=== PATIENT | female | born 1945 | race Caucasian/White ===

== ENCOUNTER → 2017-11-09 14:18 | Outpatient (CLI) | payer MEDICARE, OTHER, SELFPAY ==
--- NOTE | 2017-11-09 | OV.WND_ITS ---
Progress Note Details Patient Name: Oleg Saleh Patient Number: [id number] PatientPatientDate: 11/09/2017 Clinician: Shilpi Morgan Clinician Cosigner: Ana Harper Physician / Casing Cleaner: Roberto Khan SUBJECTIVE Chief Complaint This information was obtained from the patient Non healing wound to left leg. Allergies penicillin HPI This information was obtained from the patient 11/09/17. Seen by Dr. hKan. The patient's new to our clinic and presents with a non-healing left lower leg trauma wound that occurred about 6 weeks ago when she hit the medial calf on a chair. I subsequently swelled and became infected at which time she reports taking a course of Bactrim that made her nauseated. She does not report pain at the site, fevers , or feeling unwell but has considerable periwound and lower leg swelling. She also does not have a history of diabetes or PAD. Family History This information was obtained from the patient Cancer - Mother, Heart Disease - Father, Lung Disease - Mother Social History This information was obtained from the patient Alcohol Use - 3/ day, Caffeine Use - occasional, Children - 1, Lives in - Private home, Marital Status, Retired - Teacher Past Medical History This information was obtained from the patient Patient has a medical history of: Hypertension Hyperlipidemia Arthritis Alcohol Abuse Surgical History This information was obtained from the patient Patient has a surgical history of: Bilateral TKA cataract removal Complaints and Symptoms This information was obtained from the patient Patient complains of: General Notes: I have reviewed and concur with the Review of Systems and Past Family Social History documents completed by the clinician, I have reviewed and concur with the Wound Assessment document completed by the clinician Cardiovascular (Central/Peripheral): Lower extremity (leg) swelling Integumentary (Hair/Skin/Nails): Open Sore Prior Wound History: Bleeding, Drainage, Erythema Patient denies complaints or symptoms related to: Cardiovascular (Central): Irregular heart beat Cardiovascular (Central/Peripheral): Intermittent Claudication, Lower extremity (leg) resting pain Constitutional Symptoms (General Health): Chills, Fever Ear/Nose/Mouth/Throat: Hearing Loss / Aid Hematologic/Lymphatic: Bleeding / Clotting Disorders, Bleeding Tendency Musculoskeletal: Assistive Devices Neurological: Loss of Protective Sensation Psychiatric: Memory Loss Respiratory: Shortness of Breath General Notes: Up to date per patient Medications oxycodone 5 mg tablet oral tablet oral every 4-6 hours as needed diazepam 5 mg tablet oral tablet oral ondansetron 4 mg oral soluble film oral film oral once daily pravastatin 20 mg tablet oral tablet oral once daily atenolol 25 mg tablet oral tablet oral once daily doxycycline hyclate 100 mg capsule oral capsule oral twice daily for 7 days for infected hematoma gentamicin 0.1 % topical ointment topical ointment topical every other day for 7 days for infected wound OBJECTIVE Constitutional BP normal; Low grade fever; Alert and in no distress. Well developed. Alert. Clean appearing.. Height/Length: 61 in (154.94 cm), Weight: 185.7 lbs (84.41 kgs), BMI: 35.1, Temperature: 99.2 ?F (37.33 ?C), Pulse: 69 bpm, Respiratory Rate: 16 breaths/min, Blood Pressure: 133/72 mmHg, Pulse Oximetry: 94 %. Ears, Nose, Mouth, and Throat: No clinically significant hearing loss on informal examination. Respiratory: No respiratory distress. Even respirations and without use of accessory muscles.. Cardiovascular: Pedal pulses 2+ on affected limb. 1+ left lower extremity edema. Gastrointestinal (GI): Obese. Nondistended.. Integumentary (Hair, Skin) Mild periwound erythema with warmth; significant firm periwound edema. Refer to appropriate clinician wound documentation for this visit; left lower leg wound extends to deep subcut with visible base covered with wet fibrin and slough; tunneling distally extends approx 7cm with necrotic adipose noted on probing. Wound #1 Left, Medial Leg is a chronic Full Thickness Venous Ulcer and has received a status of Not Healed. Initial wound encounter measurements are 2.3cm length x 2.2cm width x 2.1cm depth, with an area of 5.06 sq cm and a volume of 10.626 cubic cm. No tunneling has been noted. Undermining has been noted at 1:00 and ends at 10:00 with a maximum distance of 6.2cm. There is a large amount of seropurulent drainage noted which has a mild odor. The patient reports a wound pain of level 0/10. The wound margin is irregular. Wound bed has Yes epithelialization, No eschar, Yes slough, Yes bright red, pink, firm granulation. The periwound skin moisture is normal. The periwound skin color is normal. The periwound skin exhibited: Edema, Induration. The temperature of the periwound skin is WNL. Periwound skin presents with s/s of infection. Confirmation Description and Treatment Plan is: Signs and Symptoms Present. Local Pulse is Palpable. Neurological: Cranial nerves grossly intact with symmetric function normal by informal observation.. ASSESSMENT Active Problems ICD-10 (Encounter Diagnosis) S81.802D - Unspecified open wound, left lower leg, subsequent encounter (Encounter Diagnosis) L03.116 - Cellulitis of left lower limb (Encounter Diagnosis) M79.9 - Soft tissue disorder, unspecified PLAN Wound Orders: Wound #1 Left, Medial Leg Anesthetic Topical Xylocaine to wound bed. - In clinic only. Cleanser Cleanse Wound: - Normal Saline and Gauze. May Shower. - Please avoid getting tap water in wound or on dressing. May use cast protector purchased from pharmacy. Topical Treatments Antibiotic/Antimicrobial Ointment/Cream. - Gentamicin ointment. Dressings Pack wound: - Ribbon gauze, buttered with gentamicin ointment Primary dressing: - Tielle plus bordered foam Additional Orders: Compression/Edema Control Elevation of leg(s) above the level of the heart when sitting. Avoid prolonged standing in one place. Single Layer Compression Wrap: - Tetra F. On during the day, off at bed time. Follow-Up Appointments Return Appointment: - - We will follow up after your appointment with [facility]. Other information: If you develop fever, chills, increased pain, drainage, redness or swelling please call our office. If after hours, respond to the ER. Should you experience any significant changes in your wound(s) or have any questions regarding your home care instructions please contact the wound center @ [phone]. If after hours, contact your primary care physician or go to the hospital emergency room. Scribing Attestation I attest, as the nurse, that I scribed these orders for the physician. Laboratory: Bacteria identified in Wound by Culture General Notes: Please pick antibiotics and take as prescribed. Follow up with [facility] on Sunday. I've reviewed the clinician's documentation and agree with the evaluation and plan as written. Also, I've started the patient on doxycycline for cellulitis associated with what's likely an infected hematoma beneath the left lower leg wound. A deep culture's been taken and we'll adjust antibiotics accordingly. I've also referred her to general surgery for consideration of deep debridement after which she'll likely benefit from negative pressure wound therapy. Electronic Signature(s) Signed By: Date: Roberto Khan MD 11/11/2017 14:27:05 Entered By: Roberto Khan on 11/11/2017 14:24:28
== END ==
PROVIDERS: PCP Specialist; Visit Provider Internal Medicine
DX: S81.802A Unspecified open wound, left lower leg, initial encounter (principal); L03.116 Cellulitis of left lower limb; M79.9 Soft tissue disorder, unspecified
CPT/HCPCS: 87070; 87075; 87077; 87186; 87205; 99214

== ENCOUNTER 2017-11-14 08:28 | Day surgery (SDC) | payer MEDICARE, OTHER, SELFPAY ==
[2017-11-13 09:36] VITALS: BMI 33.4
[2017-11-14] MEDS: LACTATED RINGERS 1,000 ML 42 ML IV ×2 (09:30→09:44)
[2017-11-14 09:45] VITALS: BMI 36.4
[2017-11-14 10:03] VITALS: BP 140/83; PULSE 63; RESP 16; TEMP 36.3; O2SAT 94
[2017-11-14] MEDS: levoFLOXacin 500 MG/100 ML PIGGYBACK 100 MG IV (10:03)
--- NOTE | 2017-11-14 10:14 | SUR.OPER ---
Supine on padded OR bed, head on pillow, arms secured on padded arm boards at <90 degrees abduction, legs uncrossed, safety belt at thigh, tape over blanket over lower legs.
[2017-11-14] MEDS: LIDOCAINE 1% W/EPI INJ 20 ML INJ (10:41)
[2017-11-14] MEDS: BUPIVACAINE 0.5% (PF) 30 ML VIAL INJ (10:42)
--- NOTE | 2017-11-14 10:57 | PM.OP.1 ---
Operative Date/Time/Diagnoses - Date of procedure: 11/14/17 Time of procedure: 10:58 Post-op diagnosis: same Procedure & Clinicians Procedure: Incisional debridement of nonhealing wound of the left lower extremity Same procedure as scheduled: Yes Indications: Open and nonhealing wound of the left lower extremity after trauma Surgeon: Daisy Espinoza Click Yes if Unassisted: Yes Anesthesia Type: General (Kotlarczyk) Operative Notes Findings: 12 x 10 cm cavity containing fibrinous exudate and necrotic fatty tissue Specimen(s): none sent Implants & Drains: Wound VAC in the open wound of the left calf Estimated Blood Loss (mL): 20 Procedure in detail: After obtaining informed consent, the patient is brought to the operating room and placed in supine position on the operating table. Following successful induction of general endotracheal anesthesia, appropriate padding of all bony prominences, and placed on appropriate monitors, the left calf was prepped and draped in the standard surgical fashion. A time-out was held per SCOAP protocol. Following infiltration with local anesthetic to create a field block, an incision was created directly over the palpable and visible cavity. The incision was extended inferiorly and superiorly until the entire cavity was opened and accessible. The cavity was cultured for aerobic and anaerobic bacteria. A 10 blade scalpel was then used to scrape all exudate and necrotic tissue from all cavity surfaces. The wound was then copiously irrigated with Betadine containing saline. Wound was checked for hemostasis multiple times until the entire wound had been debrided and irrigated copiously with Betadine. We then placed a wound VAC by trimming the foam to an appropriate size and inserting it within the cavity. The entire skin edge was coated with Mastisol and the and dressings applied on the surface. The wound VAC was hooked to suction and maintained an appropriate level of negative pressure. All sponge, needle, and instrument counts were correct at the conclusion of the case. The patient was allowed to awaken from anesthesia without difficulty and taken to the postanesthesia care unit in good condition. Complications: none Condition: stable Disposition: PACU Plan for aftercare: 1. Discharge to home 2. Follow up with the wound care center as previously scheduled
[2017-11-14 11:05] VITALS: BP 113/63; PULSE 73; RESP 16; TEMP 37.2; O2SAT 99
[2017-11-14 11:10] VITALS: BP 127/69; PULSE 74; RESP 16; O2SAT 98
[2017-11-14 11:15] VITALS: PULSE 153; RESP 17; O2SAT 97
[2017-11-14 11:29] VITALS: BP 142/72; PULSE 64; RESP 17; TEMP 36.9; O2SAT 96
[2017-11-14] MEDS: OXYCODONE IR 5 MG TABLET PO (11:43)
--- NOTE | 2017-11-14 12:10 | SUR.PHASEII ---
pt has [facility] wound vac to continuous suction. appointment for clinic is 11/16/17 at 1315 and pt is aware that wound care visits will be twice a week in the future. pt has instructuion book for wound vac and also has phone number for clinic if any questions arrise
[2017-11-14 13:00] VITALS: BP 140/68; PULSE 64; RESP 16; TEMP 36.8; O2SAT 93
--- NOTE | 2017-11-14 15:14 | PM.PREOP ---
Pre-operative Note Interval Note Pre-op Check: Yes History & Physical Reviewed by Physician Changes: No
== END 2017-11-14 13:05 | disposition home or self-care (01) ==
PROVIDERS: PCP Specialist; Visit Provider Surgery
PROC: (CPT 11043; principal; 2017-11-14 12:15)
DX: S81.802A Unspecified open wound, left lower leg, initial encounter (principal); W22.03XA Walked into furniture, initial encounter
CPT/HCPCS: 11043; 11046; 87070; 87075; 87077; 87186; 87205; J1100; J1956; J2405; J2704; J3010

== ENCOUNTER → 2017-11-16 15:41 | Outpatient (CLI) | payer MEDICARE, OTHER, SELFPAY ==
--- NOTE | 2017-11-16 | OV.WND_ITS ---
Progress Note Details Patient Name: Oleg Saleh Patient Number: [id number] PatientPatientDate: 11/16/2017 Clinician: Ivory Ramirez Clinician Cosigner: Wandy Daugherty Physician / Product Safety Compliance Leader: Keyshawn Bella SUBJECTIVE Chief Complaint This information was obtained from the patient Non healing wound to left leg. Allergies penicillin HPI This information was obtained from the patient 11/16/17. Seen by Afshin Bella PA-C. The patient reports decreased drainage from her left lower leg wound since starting cefdinir, which she continues the course of. She also tells us today that she will be travelling to [facility] in 3 weeks. 11/09/17. Seen by Dr. Khan. The patient's new to our clinic and presents with a non-healing left lower leg trauma wound that occurred about 6 weeks ago when she hit the medial calf on a chair. I subsequently swelled and became infected at which time she reports taking a course of Bactrim that made her nauseated. She does not report pain at the site, fevers , or feeling unwell but has considerable periwound and lower leg swelling. She also does not have a history of diabetes or PAD. Family History This information was obtained from the patient Cancer - Mother, Heart Disease - Father, Lung Disease - Mother Social History This information was obtained from the patient Alcohol Use - 3/ day, Caffeine Use - occasional, Children - 1, Lives in - Private home, Marital Status, Retired - Teacher Past Medical History This information was obtained from the patient Patient has a medical history of: Hypertension Hyperlipidemia Arthritis Alcohol Abuse Complaints and Symptoms This information was obtained from the patient Patient complains of: General Notes: I have reviewed and concur with the Review of Systems and Past Family Social History documents completed by the clinician, I have reviewed and concur with the Wound Assessment document completed by the clinician Cardiovascular (Central/Peripheral): Lower extremity (leg) swelling Integumentary (Hair/Skin/Nails): Open Sore Prior Wound History: Bleeding, Drainage, Erythema Patient denies complaints or symptoms related to: Cardiovascular (Central): Irregular heart beat Cardiovascular (Central/Peripheral): Intermittent Claudication, Lower extremity (leg) resting pain Constitutional Symptoms (General Health): Chills, Fever Ear/Nose/Mouth/Throat: Hearing Loss / Aid Hematologic/Lymphatic: Bleeding / Clotting Disorders, Bleeding Tendency Musculoskeletal: Assistive Devices Neurological: Loss of Protective Sensation Psychiatric: Memory Loss Respiratory: Shortness of Breath OBJECTIVE Constitutional Vital signs reviewed and noted. Well developed, lucid, and in no acute distress. . Height/Length: 61 in (154.94 cm), Weight: 183.4 lbs (83.36 kgs), BMI: 34.6, Temperature: 99.2 ?F (37.33 ?C), Pulse: 62 bpm, Respiratory Rate: 16 breaths/min, Blood Pressure: 117/72 mmHg, Pulse Oximetry: 96 %. Eyes: Conjunctiva clear and without icterus. Pupils are equal and round; EOM's intact. Ears, Nose, Mouth, and Throat: Grossly intact. Respiratory: No respiratory distress. Even respirations and without use of accessory muscles.. Integumentary (Hair, Skin) Refer to appropriate clinician wound documentation for this visit; ulcer extends to subcutaneous fat layer. . Wound #1 Left, Medial Leg is a chronic Full Thickness Venous Ulcer and has received a status of Not Healed. Subsequent wound encounter measurements are 5.9cm length x 3.3cm width x 2cm depth, with an area of 19.47 sq cm and a volume of 38.94 cubic cm. No tunneling has been noted. Undermining has been noted at 1:00 and ends at 10:00 with a maximum distance of 3cm. There is a large amount of sero-sanguineous drainage noted which has no odor. The patient reports a wound pain of level 0/10. The wound margin is irregular. Wound bed has Yes epithelialization, No eschar, Yes slough, Yes bright red, pink, firm granulation. The periwound skin moisture is normal. The periwound skin color is normal. The periwound skin exhibited: Edema, Induration. The temperature of the periwound skin is WNL. Periwound skin does not exhibit signs or symptoms of infection. Local Pulse is Palpable. General Notes: Undermining measured between 1 o'clock and 4 0'clock 3.0cm Psychiatric: Judgement and insight: Normal affect with normal thought pattern. Alert and oriented 3/3. Memory grossly intact.. Normal affect. Mood appropriate.. ASSESSMENT Active Problems ICD-10 (Encounter Diagnosis) S81.802D - Unspecified open wound, left lower leg, subsequent encounter (Encounter Diagnosis) L03.116 - Cellulitis of left lower limb (Encounter Diagnosis) M79.9 - Soft tissue disorder, unspecified PROCEDURES Wound #1 Wound #1 (Venous Ulcer) is located on the left, medial leg. A skin/subcutaneous tissue level surgical debridement with a total area debrided of 19.47 sq cm was performed by Keyshawn Bella PA. Subcutaneous was removed along with devitalized tissue: slough. The following instrument(s) were used: curette. Pain control was achieved using 4% Lido. A time out was conducted prior to the start of the procedure. A minimal amount of bleeding was controlled with n/a. The procedure was tolerated well with a pain level of 0 throughout and a pain level of 0 following the procedure. Post Debridement Measurements: 5.9cm length x 3.3cm width x 0.3cm depth; with an area of 19.47 sq cm and a volume of 5.841 cubic cm; Additional Information Muscle fascia or bone removed and sent to pathology?: No PLAN Wound Orders: Wound #1 Left, Medial Leg Anesthetic Topical Xylocaine to wound bed. - In clinic only. Cleanser Cleanse Wound: - Normal Saline and Gauze. May Shower. - Please avoid getting tap water in wound or on dressing. May use cast protector purchased from pharmacy. Topical Treatments Antibiotic/Antimicrobial Ointment/Cream. - Gentamicin ointment. Dressings Negative Pressure Wound Therapy - [facility] Additional Orders: Compression/Edema Control Elevation of leg(s) above the level of the heart when sitting. Avoid prolonged standing in one place. Follow-Up Appointments Return Appointment: - - Sunday and Sunday. Other information: If you develop fever, chills, increased pain, drainage, redness or swelling please call our office. If after hours, respond to the ER. Should you experience any significant changes in your wound(s) or have any questions regarding your home care instructions please contact the wound center @ [phone]. If after hours, contact your primary care physician or go to the hospital emergency room. Scribing Attestation I attest, as the nurse, that I scribed these orders for the physician. General Notes: Please finish taking your antibiotics as prescribed. I've reviewed the clinician's documentation and agree with the evaluation and plan as written. In addition the patient's ulcer demonstrates evidence of non-viable devitalized tissue which benefits from sharp debridement. Separate from the need for debridement today to speed healing, the patient's infection was assessed and appears to still be active. The patient was enouraged to continue complying with the ordered antimicrobial regemin for ongoing treatment for this issue. Negative pressure wound therapy was applied today for the purpose of reducing local edema, promoting granulation tissue formation and perfusion, and for the removal of exudate and infectious material. Electronic Signature(s) Signed By: Date: Afshin Bella 11/19/2017 22:08:02 Entered By: Afshin Bella on 11/19/2017 21:20:32
== END ==
PROVIDERS: PCP Specialist; Visit Provider Physician Assistant
DX: S81.802A Unspecified open wound, left lower leg, initial encounter (principal); L03.116 Cellulitis of left lower limb; M79.9 Soft tissue disorder, unspecified
CPT/HCPCS: 11042; 97605

== ENCOUNTER → 2017-11-20 14:35 | Outpatient (CLI) | payer MEDICARE, OTHER, SELFPAY ==
--- NOTE | 2017-11-20 | OV.WND_ITS ---
Progress Note Details Patient Name: Oleg Saleh Patient Number: [id number] PatientPatientDate: 11/20/2017 Clinician: Ivory Ramirez Clinician Cosigner: Wandy Daugherty Physician / Hot Blaster: Roberto Khan SUBJECTIVE Chief Complaint This information was obtained from the patient Non healing wound to left leg. Allergies penicillin HPI This information was obtained from the patient 11/20/17. Seen by Dr. Khan. The patient continues on antibiotics without reporting fevers or adverse side effects for the left lower leg infected hematoma that was recently evacuated by Dr. Espinoza. She's also receiving negative pressure wound therapy without reporting complications. 11/16/17. Seen by Afshin Bella PA-C. The patient reports decreased drainage from her left lower leg wound since starting cefdinir, which she continues the course of. She also tells us today that she will be travelling to [facility] in 3 weeks. 11/09/17. Seen by Dr. Khan. The patient's new to our clinic and presents with a non-healing left lower leg trauma wound that occurred about 6 weeks ago when she hit the medial calf on a chair. I subsequently swelled and became infected at which time she reports taking a course of Bactrim that made her nauseated. She does not report pain at the site, fevers , or feeling unwell but has considerable periwound and lower leg swelling. She also does not have a history of diabetes or PAD. Past Medical History This information was obtained from the patient Patient has a medical history of: Hypertension Hyperlipidemia Arthritis Alcohol Abuse Complaints and Symptoms This information was obtained from the patient Patient complains of: General Notes: I have reviewed and concur with the Review of Systems and Past Family Social History documents completed by the clinician, I have reviewed and concur with the Wound Assessment document completed by the clinician Cardiovascular (Central/Peripheral): Lower extremity (leg) swelling Integumentary (Hair/Skin/Nails): Open Sore Prior Wound History: Bleeding, Drainage, Erythema Patient denies complaints or symptoms related to: Cardiovascular (Central): Irregular heart beat Cardiovascular (Central/Peripheral): Intermittent Claudication, Lower extremity (leg) resting pain Constitutional Symptoms (General Health): Chills, Fever Ear/Nose/Mouth/Throat: Hearing Loss / Aid Hematologic/Lymphatic: Bleeding / Clotting Disorders, Bleeding Tendency Musculoskeletal: Assistive Devices Neurological: Loss of Protective Sensation Psychiatric: Memory Loss Respiratory: Shortness of Breath OBJECTIVE Constitutional Vital signs reviewed and noted. Well developed. Alert. Clean appearing.. Height/ Length: 61 in (154.94 cm), Weight: 183.4 lbs (83.36 kgs), BMI: 34.6, Temperature: 98.6 ?F (37 ?C), Pulse: 58 bpm, Respiratory Rate: 16 breaths/min, Blood Pressure: 129/82 mmHg, Pulse Oximetry: 98 %. Ears, Nose, Mouth, and Throat: No clinically significant hearing loss on informal examination. Respiratory: No respiratory distress. Even respirations and without use of accessory muscles.. Cardiovascular: 1+ left lower extremity edema. Integumentary (Hair, Skin) No periwound erythema, warmth, or significant drainage. No periwound rashes appreciated or noted otherwise.. Refer to appropriate clinician wound documentation for this visit; left lower leg wound extends to subcut with base partially covered with pink granulation, remainder fibrin and slough; periwound swelling much improved and no warmth appreciated. Wound #1 Left, Medial Leg is a chronic Full Thickness Venous Ulcer and has received a status of Not Healed. Subsequent wound encounter measurements are 6cm length x 3.3cm width x 1.1cm depth, with an area of 19.8 sq cm and a volume of 21.78 cubic cm. No tunneling has been noted. No sinus tract has been noted. Undermining has been noted at 1:00 and ends at 10:00 with a maximum distance of 1.5cm. There is a large amount of sero- sanguineous drainage noted which has no odor. The patient reports a wound pain of level 0/ 10. The wound margin is irregular. Wound bed has Yes epithelialization, No eschar, Yes slough , Yes bright red, pink, firm granulation. The periwound skin moisture is normal. The periwound skin color is normal. The periwound skin exhibited: Edema, Induration. The temperature of the periwound skin is WNL. Periwound skin does not exhibit signs or symptoms of infection. Local Pulse is Palpable. Neurological: Cranial nerves grossly intact with symmetric function normal by informal observation.. ASSESSMENT Active Problems ICD-10 (Encounter Diagnosis) S81.802D - Unspecified open wound, left lower leg, subsequent encounter (Encounter Diagnosis) M79.9 - Soft tissue disorder, unspecified (Encounter Diagnosis) L08.9 - Local infection of the skin and subcutaneous tissue, unspecified PROCEDURES Wound #1 Wound #1 (Venous Ulcer) is located on the left, medial leg. A skin/subcutaneous tissue level surgical debridement with a total area debrided of 19.8 sq cm was performed by Roberto Khan MD. Subcutaneous was removed along with devitalized tissue: slough. The following instrument(s) were used: curette. Pain control was achieved using 4% Lido. A time out was conducted prior to the start of the procedure. A minimal amount of bleeding was controlled with n/a. The procedure was tolerated well with a pain level of 0 throughout and a pain level of 0 following the procedure. Post Debridement Measurements: 6cm length x 3.3cm width x 1.2cm depth; with an area of 19.8 sq cm and a volume of 23.76 cubic cm; Additional Information Muscle fascia or bone removed and sent to pathology?: No PLAN Wound Orders: Wound #1 Left, Medial Leg Anesthetic Topical Xylocaine to wound bed. - In clinic only. Cleanser Cleanse Wound: - Normal Saline and Gauze. May Shower. - Please avoid getting tap water in wound or on dressing. May use cast protector purchased from pharmacy. Topical Treatments Antibiotic/Antimicrobial Ointment/Cream. - Gentamicin ointment. Dressings Negative Pressure Wound Therapy - KCI Additional Orders: Compression/Edema Control Elevation of leg(s) above the level of the heart when sitting. Avoid prolonged standing in one place. Follow-Up Appointments Return Appointment: - - Sunday and Sunday. Other information: If you develop fever, chills, increased pain, drainage, redness or swelling please call our office. If after hours, respond to the ER. Should you experience any significant changes in your wound(s) or have any questions regarding your home care instructions please contact the wound center @ [phone]. If after hours, contact your primary care physician or go to the hospital emergency room. Scribing Attestation I attest, as the nurse, that I scribed these orders for the physician. General Notes: Please finish taking your antibiotics as prescribed I've reviewed the clinician's documentation and agree with the evaluation and plan as written. In addition the patient's wound demonstrates evidence of non-viable devitalized tissue which will continue to benefit from sharp debridement to help promote granulation and expedite healing. Negative pressure wound therapy will be utilized to facilitate granulation and removal of exudate and infectious material with the goal of expediting wound healing. Also, the patient will complete her course of antibiotics as prescribed. Electronic Signature(s) Signed By: Date: Roberto Khan MD 11/21/2017 08:47:14 Entered By: Roberto Khan on 11/20/2017 14:24:57
== END ==
PROVIDERS: PCP Specialist; Visit Provider Internal Medicine
DX: S81.802A Unspecified open wound, left lower leg, initial encounter (principal); M79.9 Soft tissue disorder, unspecified; L08.9 Local infection of the skin and subcutaneous tissue, unspecified
CPT/HCPCS: 11042; 97605

== ENCOUNTER → 2017-11-23 11:01 | Outpatient (CLI) | payer MEDICARE, OTHER, SELFPAY ==
--- NOTE | 2017-11-23 | OV.WND_ITS ---
Progress Note Details Patient Name: Oleg Saleh Patient Number: [id number] PatientPatientDate: 11/23/2017 Clinician: Dina Xiao Physician / Steam Hand: Roberto Khan SUBJECTIVE Chief Complaint This information was obtained from the patient Venous ulcer on left leg. Allergies penicillin HPI This information was obtained from the patient 11/23/17. Seen by Dr. Khan. The patient continues on cefdinir without reporting fevers or adverse side effects for the left lower leg infected hematoma that was recently evacuated by Dr. Espinoza. She's also receiving negative pressure wound therapy treating the surgical wound without reporting complications. 11/20/17. Seen by Dr. Khan. The patient continues on antibiotics without reporting fevers or adverse side effects for the left lower leg infected hematoma that was recently evacuated by Dr. Espinoza. She's also receiving negative pressure wound therapy without reporting complications. 11/16/17. Seen by Afshin Bella PA-C. The patient reports decreased drainage from her left lower leg wound since starting cefdinir, which she continues the course of. She also tells us today that she will be travelling to [facility] in 3 weeks. 11/09/17. Seen by Dr. Khan. The patient's new to our clinic and presents with a non-healing left lower leg trauma wound that occurred about 6 weeks ago when she hit the medial calf on a chair. I subsequently swelled and became infected at which time she reports taking a course of Bactrim that made her nauseated. She does not report pain at the site, fevers , or feeling unwell but has considerable periwound and lower leg swelling. She also does not have a history of diabetes or PAD. Past Medical History This information was obtained from the patient Patient has a medical history of: Hypertension Hyperlipidemia Arthritis Alcohol Abuse Complaints and Symptoms This information was obtained from the patient Patient complains of: General Notes: I have reviewed and concur with the Review of Systems and Past Family Social History documents completed by the clinician, I have reviewed and concur with the Wound Assessment document completed by the clinician Cardiovascular (Central/Peripheral): Lower extremity (leg) swelling Integumentary (Hair/Skin/Nails): Open Sore Prior Wound History: Bleeding, Drainage, Erythema Patient denies complaints or symptoms related to: Cardiovascular (Central): Irregular heart beat Cardiovascular (Central/Peripheral): Intermittent Claudication, Lower extremity (leg) resting pain Constitutional Symptoms (General Health): Chills, Fever Ear/Nose/Mouth/Throat: Hearing Loss / Aid Hematologic/Lymphatic: Bleeding / Clotting Disorders, Bleeding Tendency Musculoskeletal: Assistive Devices Neurological: Loss of Protective Sensation Psychiatric: Memory Loss Respiratory: Shortness of Breath OBJECTIVE Constitutional Vital signs reviewed and noted. Well developed. Alert. Clean appearing.. Height/ Length: 61 in (154.94 cm), Weight: 183.8 lbs (83.55 kgs), BMI: 34.7, Temperature: 98.4 ?F ( 36.89 ?C), Pulse: 59 bpm, Respiratory Rate: 18 breaths/min, Blood Pressure: 127/79 mmHg, Pulse Oximetry: 95 %. Ears, Nose, Mouth, and Throat: No clinically significant hearing loss on informal examination. Cardiovascular: 1+ left lower extremity edema. Integumentary (Hair, Skin) No periwound erythema, warmth, or significant drainage. No periwound rashes appreciated or noted otherwise.. Refer to appropriate clinician wound documentation for this visit; left lower leg wound extends to deep subcut with base partially covered with red, friable granulation, remainder fibrin and slough. Wound #1 Left, Medial Leg is a chronic Full Thickness Venous Ulcer and has received a status of Not Healed. Subsequent wound encounter measurements are 5.9cm length x 3.2cm width x 1.1cm depth, with an area of 18.88 sq cm and a volume of 20.768 cubic cm. Necrotic adipose is exposed. No tunneling has been noted. No sinus tract has been noted. Undermining has been noted at 1:00 and ends at 10:00 with a maximum distance of 2.4cm. There is a large amount of sero-sanguineous drainage noted which has no odor. The patient reports a wound pain of level 0/10. The wound margin is irregular. Wound bed has Yes epithelialization, No eschar, Yes slough, Yes bright red, pink, firm granulation. The periwound skin color is normal. The periwound skin exhibited: Edema, Induration, Moist. The periwound skin did not exhibit: Brawny Induration, Excoriation, Callus, Crepitus, Fluctuance, Friable, Rash, Dry/Scaly, Maceration. The temperature of the periwound skin is WNL. Periwound skin does not exhibit signs or symptoms of infection. Local Pulse is Palpable. Neurological: Cranial nerves grossly intact with symmetric function normal by informal observation.. ASSESSMENT Active Problems ICD-10 (Encounter Diagnosis) S81.802D - Unspecified open wound, left lower leg, subsequent encounter (Encounter Diagnosis) L08.9 - Local infection of the skin and subcutaneous tissue, unspecified PROCEDURES Wound #1 Wound #1 (Venous Ulcer) is located on the left, medial leg. A skin/subcutaneous tissue level surgical debridement with a total area debrided of 18.88 sq cm was performed by Roberto Khan MD. Adipose and Subcutaneous were removed along with devitalized tissue: necrotic/eschar and slough. The following instrument(s) were used: curette. Pain control was achieved using 4% Lido. A time out was conducted prior to the start of the procedure. A minimal amount of bleeding was controlled with pressure. The procedure was tolerated well with a pain level of 0 throughout and a pain level of 0 following the procedure. Post Debridement Measurements: 5.9cm length x 3.2cm width x 1.2cm depth; with an area of 18.88 sq cm and a volume of 22.656 cubic cm; Additional Information Muscle fascia or bone removed and sent to pathology?: No PLAN Wound Orders: Wound #1 Left, Medial Leg Anesthetic Topical Xylocaine to wound bed. - In clinic. Cleanser Cleanse Wound: - Normal saline and gauze in clinic. May Shower. - Cover with cast protector. Dressings Wound Vac: - White foam to undermining, black foam to fill. KCI 125mmHg. Change Dressing: - Leave in place until next visit. Additional Orders: Follow-Up Appointments Return Appointment: - - Tuesdays and Fridays for [facility]. Other information: If you develop fever, chills, increased pain, drainage, redness or swelling please call our office. If after hours, respond to the ER. Should you experience any significant changes in your wound(s) or have any questions regarding your home care instructions please contact the wound center @ [phone]. If after hours, contact your primary care physician or go to the hospital emergency room. Scribing Attestation I attest, as the nurse, that I scribed these orders for the physician. Laboratory: Bacteria identified in Wound by Culture Medications prescribed: cefdinir - oral 300 mg capsule twice daily for 5 days for infected ulcer starting 11/23/2017 General Notes: Cefdinir refilled for 5 more days, please warehouse order picker and continue taking as prescribed. Will call with culture results if any changes in antibiotics are needed. I've reviewed the clinician's documentation and agree with the evaluation and plan as written. In addition the patient's wound demonstrates evidence of non-viable devitalized tissue which will continue to benefit from sharp debridement to help promote granulation and expedite healing. Negative pressure wound therapy will be utilized to facilitate granulation and removal of exudate and infectious material with the goal of expediting wound healing. Also, the patient will continue on cefdinir for another 5 days and I've repeated a wound culture. If the results are unremarkable we'll discontinue antibiotics next week. Electronic Signature(s) Signed By: Date: Roberto Khan MD 11/25/2017 17:52:31 Entered By: Roberto Khan on 11/23/2017 12:22:58
== END ==
PROVIDERS: PCP Specialist; Visit Provider Internal Medicine
DX: S81.802A Unspecified open wound, left lower leg, initial encounter (principal); B95.2 Enterococcus as the cause of diseases classified elsewhere
CPT/HCPCS: 11042; 87070; 87075; 87205; 97605

== ENCOUNTER → 2017-11-27 11:46 | Outpatient (CLI) | payer MEDICARE, OTHER, SELFPAY ==
--- NOTE | 2017-11-27 | OV.WND_ITS ---
Progress Note Details Patient Name: Oleg Saleh Patient Number: [id number] PatientPatientDate: 11/27/2017 Clinician: Shilpi Morgan Physician / Machine Stapler: Roberto Khan SUBJECTIVE Chief Complaint This information was obtained from the patient Venous ulcer on left leg. Allergies penicillin HPI This information was obtained from the patient 11/27/17. Seen by Dr. Khan. The patient does not report pain nor increased drainage associated with the chronic left lower leg surgical wound since her last visit and she's tolerating the wound vac without difficulty. She also continues on cefdinir for a wound infection and does not report adverse side effects. 11/23/17. Seen by Dr. Khan. The patient continues on cefdinir without reporting fevers or adverse side effects for the left lower leg infected hematoma that was recently evacuated by Dr. Espinoza. She's also receiving negative pressure wound therapy treating the surgical wound without reporting complications. 11/20/17. Seen by Dr. Khan. The patient continues on antibiotics without reporting fevers or adverse side effects for the left lower leg infected hematoma that was recently evacuated by Dr. Espinoza. She's also receiving negative pressure wound therapy without reporting complications. 11/16/17. Seen by Afshin Bella PA-C. The patient reports decreased drainage from her left lower leg wound since starting cefdinir, which she continues the course of. She also tells us today that she will be travelling to [facility] in 3 weeks. 11/09/17. Seen by Dr. Khan. The patient's new to our clinic and presents with a non-healing left lower leg trauma wound that occurred about 6 weeks ago when she hit the medial calf on a chair. I subsequently swelled and became infected at which time she reports taking a course of Bactrim that made her nauseated. She does not report pain at the site, fevers , or feeling unwell but has considerable periwound and lower leg swelling. She also does not have a history of diabetes or PAD. Past Medical History This information was obtained from the patient Patient has a medical history of: Hypertension Hyperlipidemia Arthritis Alcohol Abuse Complaints and Symptoms This information was obtained from the patient Patient complains of: General Notes: I have reviewed and concur with the Review of Systems and Past Family Social History documents completed by the clinician, I have reviewed and concur with the Wound Assessment document completed by the clinician Cardiovascular (Central/Peripheral): Lower extremity (leg) swelling Integumentary (Hair/Skin/Nails): Open Sore Prior Wound History: Bleeding, Drainage, Erythema Patient denies complaints or symptoms related to: Cardiovascular (Central): Irregular heart beat Cardiovascular (Central/Peripheral): Intermittent Claudication, Lower extremity (leg) resting pain Constitutional Symptoms (General Health): Chills, Fever Ear/Nose/Mouth/Throat: Hearing Loss / Aid Hematologic/Lymphatic: Bleeding / Clotting Disorders, Bleeding Tendency Musculoskeletal: Assistive Devices Neurological: Loss of Protective Sensation Psychiatric: Memory Loss Respiratory: Shortness of Breath OBJECTIVE Constitutional Vital signs reviewed and noted. Well developed. Alert. Clean appearing.. Height/ Length: 61 in (154.94 cm), Weight: 187.5 lbs (85.23 kgs), BMI: 35.4, Temperature: 98.3 ?F ( 36.83 ?C), Pulse: 54 bpm, Respiratory Rate: 18 breaths/min, Pulse Oximetry: 95 %. Respiratory: No respiratory distress. Even respirations and without use of accessory muscles.. Cardiovascular: 1+ left lower extremity edema. Integumentary (Hair, Skin) No periwound erythema, warmth, or significant drainage. No periwound rashes appreciated or noted otherwise.. Refer to appropriate clinician wound documentation for this visit; left lower leg wound extends to deep subcut with base partially covered with pink granulation, remainder fibrin and slough. Wound #1 Left, Medial Leg is a chronic Full Thickness Venous Ulcer and has received a status of Not Healed. Subsequent wound encounter measurements are 5.7cm length x 3cm width x 0.7cm depth, with an area of 17.1 sq cm and a volume of 11.97 cubic cm. Necrotic adipose is exposed. No tunneling has been noted. No sinus tract has been noted. Undermining has been noted at 1:00 and ends at 9:00 with a maximum distance of 1cm. There is a large amount of sero-sanguineous drainage noted which has no odor. The patient reports a wound pain of level 0/10. The wound margin is irregular. Wound bed has Yes epithelialization, No eschar, Yes slough, Yes bright red, pink, firm granulation. The periwound skin color is normal. The periwound skin exhibited: Edema, Induration, Moist. The periwound skin did not exhibit: Brawny Induration, Excoriation, Callus, Crepitus, Fluctuance, Friable, Rash, Dry/Scaly, Maceration. The temperature of the periwound skin is WNL. Periwound skin does not exhibit signs or symptoms of infection. Local Pulse is Palpable. Neurological: Cranial nerves grossly intact with symmetric function normal by informal observation.. ASSESSMENT Active Problems ICD-10 (Encounter Diagnosis) S81.802D - Unspecified open wound, left lower leg, subsequent encounter (Encounter Diagnosis) L08.9 - Local infection of the skin and subcutaneous tissue, unspecified PROCEDURES Wound #1 Wound #1 (Venous Ulcer) is located on the left, medial leg. A skin/subcutaneous tissue level surgical debridement with a total area debrided of 17.1 sq cm was performed by Roberto Khan MD. Subcutaneous was removed along with devitalized tissue: slough. The following instrument(s) were used: curette. Pain control was achieved using 4% Lido. A time out was conducted prior to the start of the procedure. A minimal amount of bleeding was controlled with n/a. The procedure was tolerated well with a pain level of 0 throughout and a pain level of 0 following the procedure. Post Debridement Measurements: 5.7cm length x 3cm width x 0.8cm depth; with an area of 17.1 sq cm and a volume of 13.68 cubic cm; Additional Information Muscle fascia or bone removed and sent to pathology?: No PLAN Wound Orders: Wound #1 Left, Medial Leg Anesthetic Topical Xylocaine to wound bed. - In clinic. Cleanser Cleanse Wound: - Normal saline and gauze in clinic. May Shower. - Cover with cast protector. Dressings Wound Vac: - White foam to undermining, black foam to fill. KCI 125mmHg. You should remain on V.A.C. Therapy 24-hours a day. You should not be disconnected for more than 2 hours a day. The clear drape is waterproof and you may wash or shower with dressings in place ONLY if: You are disconnected from the therapy unit. The tubing is clamped. You take care not to soak the dressing. The therapy unit is an electrical system and should not become wet. If dressings become soiled, gently clean with mild soap and water. If the therapy is off for more than 15 minutes, the alarm will sound. If you need more time, press the alarm delay button. You can reset the alarm as many times as you need. If the THERAPY ON/OFF button is accidentally turned off, push the same button to turn the unit back on. The system will return to all the right settings and therapy will continue. Notify your physician/caregiver immediately if: You notice a significant change in color or quantity of the fluid. For example, if you see clear drainage turn to cloudy or bright red. You see the canister fill rapidly. You observe increased redness or odor from the wound. You experience increasing pain. The alarm will not turn off and you have been unable to solve the problem. The V.A.C. Therapy unit is turned off for more than 2 hours per day. You start any new medication. Change Dressing: - Leave in place until next visit. Additional Orders: Follow-Up Appointments Return Appointment: - - Tuesdays and Fridays for [facility]. Other information: If you develop fever, chills, increased pain, drainage, redness or swelling please call our office. If after hours, respond to the ER. Should you experience any significant changes in your wound(s) or have any questions regarding your home care instructions please contact the wound center @ [phone]. If after hours, contact your primary care physician or go to the hospital emergency room. Scribing Attestation I attest, as the nurse, that I scribed these orders for the physician. General Notes: Continue antibiotics as prescribed. I've reviewed the clinician's documentation and agree with the evaluation and plan as written. In addition the patient's wound demonstrates evidence of non-viable devitalized tissue which will continue to benefit from sharp debridement to help promote granulation and expedite healing. Negative pressure wound therapy will be utilized to facilitate granulation and removal of exudate and infectious material with the goal of expediting wound healing. Also, the patient will complete her course of cefdinir today and we'll defer additional antibiotics while monitoring for signs of recurrent infection. Electronic Signature(s) Signed By: Date: Roberto Khan MD 11/29/2017 08:46:21 Entered By: Roberto Khan on 11/27/2017 14:13:09
== END ==
PROVIDERS: PCP Specialist; Visit Provider Internal Medicine
DX: S81.802A Unspecified open wound, left lower leg, initial encounter (principal); L08.9 Local infection of the skin and subcutaneous tissue, unspecified
CPT/HCPCS: 11042; 97605

== ENCOUNTER → 2017-11-30 10:10 | Outpatient (CLI) | payer MEDICARE, OTHER, SELFPAY ==
--- NOTE | 2017-11-30 | OV.WND_ITS ---
Progress Note Details Patient Name: Oleg Saleh Patient Number: [id number] PatientPatientDate: 11/30/2017 Clinician: Ivory Ramirez Physician / Welding Operator: Roberto Khan SUBJECTIVE Chief Complaint This information was obtained from the patient Venous ulcer on left leg. Allergies penicillin HPI This information was obtained from the patient 11/30/17. Seen by Dr. Khan. The patient does not report pain nor increased drainage associated with the chronic left lower leg surgical wound since her last visit and she's tolerating the wound vac without difficulty. She also completed her course of cefdinir that was treating a wound infection and does not report adverse side effects. 11/27/17. Seen by Dr. Khan. The patient does not report pain nor increased drainage associated with the chronic left lower leg surgical wound since her last visit and she's tolerating the wound vac without difficulty. She also continues on cefdinir for a wound infection and does not report adverse side effects. 11/23/17. Seen by Dr. Khan. The patient continues on cefdinir without reporting fevers or adverse side effects for the left lower leg infected hematoma that was recently evacuated by Dr. Espinoza. She's also receiving negative pressure wound therapy treating the surgical wound without reporting complications. 11/20/17. Seen by Dr. Khan. The patient continues on antibiotics without reporting fevers or adverse side effects for the left lower leg infected hematoma that was recently evacuated by Dr. Espinoza. She's also receiving negative pressure wound therapy without reporting complications. 11/16/17. Seen by Afshin Bella PA-C. The patient reports decreased drainage from her left lower leg wound since starting cefdinir, which she continues the course of. She also tells us today that she will be travelling to [facility] in 3 weeks. 11/09/17. Seen by Dr. Khan. The patient's new to our clinic and presents with a non-healing left lower leg trauma wound that occurred about 6 weeks ago when she hit the medial calf on a chair. I subsequently swelled and became infected at which time she reports taking a course of Bactrim that made her nauseated. She does not report pain at the site, fevers , or feeling unwell but has considerable periwound and lower leg swelling. She also does not have a history of diabetes or PAD. Past Medical History This information was obtained from the patient Patient has a medical history of: Hypertension Hyperlipidemia Arthritis Alcohol Abuse Complaints and Symptoms This information was obtained from the patient Patient complains of: General Notes: I have reviewed and concur with the Review of Systems and Past Family Social History documents completed by the clinician, I have reviewed and concur with the Wound Assessment document completed by the clinician Cardiovascular (Central/Peripheral): Lower extremity (leg) swelling Integumentary (Hair/Skin/Nails): Open Sore Prior Wound History: Bleeding, Drainage, Erythema Patient denies complaints or symptoms related to: Cardiovascular (Central): Irregular heart beat Cardiovascular (Central/Peripheral): Intermittent Claudication, Lower extremity (leg) resting pain Constitutional Symptoms (General Health): Chills, Fever Ear/Nose/Mouth/Throat: Hearing Loss / Aid Hematologic/Lymphatic: Bleeding / Clotting Disorders, Bleeding Tendency Musculoskeletal: Assistive Devices Neurological: Loss of Protective Sensation Psychiatric: Memory Loss Respiratory: Shortness of Breath OBJECTIVE Constitutional Vital signs reviewed and noted. Well developed. Alert. Clean appearing.. Height/ Length: 61 in (154.94 cm), Weight: 188.3 lbs (85.59 kgs), BMI: 35.6, Temperature: 97.6 ?F ( 36.44 ?C), Pulse: 58 bpm, Respiratory Rate: 18 breaths/min, Blood Pressure: 136/82 mmHg, Pulse Oximetry: 97 %. Respiratory: No respiratory distress. Even respirations and without use of accessory muscles.. Cardiovascular: 1+ left lower extremity edema. Integumentary (Hair, Skin) No periwound erythema, warmth, or significant drainage. No periwound rashes appreciated or noted otherwise.. Refer to appropriate clinician wound documentation for this visit; left lower leg wound extends to subcut with base partially covered with pink granulation, remainder fibrin and slough. Wound #1 Left, Medial Leg is a chronic Full Thickness Venous Ulcer and has received a status of Not Healed. Subsequent wound encounter measurements are 5.6cm length x 2.5cm width x 0.6cm depth, with an area of 14 sq cm and a volume of 8.4 cubic cm. Necrotic adipose is exposed. No tunneling has been noted. No sinus tract has been noted. Undermining has been noted at 1:00 and ends at 5:00 with a maximum distance of 1.5cm. There is a moderate amount of sero-sanguineous drainage noted which has no odor. The patient reports a wound pain of level 0/10. The wound margin is irregular. Wound bed has Yes epithelialization, No eschar, Yes slough, Yes bright red, pink, firm granulation. The periwound skin moisture is normal. The periwound skin color is normal. The periwound skin exhibited: Edema, Induration. The periwound skin did not exhibit: Brawny Induration, Excoriation, Callus, Crepitus, Fluctuance, Friable, Rash. The temperature of the periwound skin is WNL. Periwound skin does not exhibit signs or symptoms of infection. Local Pulse is Palpable. Neurological: Cranial nerves grossly intact with symmetric function normal by informal observation.. ASSESSMENT Active Problems ICD-10 (Encounter Diagnosis) S81.802D - Unspecified open wound, left lower leg, subsequent encounter (Encounter Diagnosis) L08.9 - Local infection of the skin and subcutaneous tissue, unspecified PROCEDURES Wound #1 Wound #1 (Venous Ulcer) is located on the left, medial leg. A skin/subcutaneous tissue level surgical debridement with a total area debrided of 14.56 sq cm was performed by Roberto Khan MD. Subcutaneous was removed along with devitalized tissue: slough. The following instrument(s) were used: curette. Pain control was achieved using 4% Lido. A time out was conducted prior to the start of the procedure. A minimal amount of bleeding was controlled with n/a. The procedure was tolerated well with a pain level of 0 throughout and a pain level of 0 following the procedure. Post Debridement Measurements: 5.6cm length x 2.6cm width x 0.7cm depth; with an area of 14.56 sq cm and a volume of 10.192 cubic cm; Additional Information Muscle fascia or bone removed and sent to pathology?: No PLAN Wound Orders: Wound #1 Left, Medial Leg Anesthetic Topical Xylocaine to wound bed. - In clinic. Cleanser Cleanse Wound: - Normal saline and gauze in clinic. May Shower. - Cover with cast protector. Dressings Wound Vac: - White foam to undermining, black foam to fill. KCI 125mmHg. You should remain on V.A.C. Therapy 24-hours a day. You should not be disconnected for more than 2 hours a day. The clear drape is waterproof and you may wash or shower with dressings in place ONLY if: You are disconnected from the therapy unit. The tubing is clamped. You take care not to soak the dressing. The therapy unit is an electrical system and should not become wet. If dressings become soiled, gently clean with mild soap and water. If the therapy is off for more than 15 minutes, the alarm will sound. If you need more time, press the alarm delay button. You can reset the alarm as many times as you need. If the THERAPY ON/OFF button is accidentally turned off, push the same button to turn the unit back on. The system will return to all the right settings and therapy will continue. Notify your physician/caregiver immediately if: You notice a significant change in color or quantity of the fluid. For example, if you see clear drainage turn to cloudy or bright red. You see the canister fill rapidly. You observe increased redness or odor from the wound. You experience increasing pain. The alarm will not turn off and you have been unable to solve the problem. The V.A.C. Therapy unit is turned off for more than 2 hours per day. You start any new medication. Change Dressing: - Leave in place until next visit. Additional Orders: Follow-Up Appointments Return Appointment: - - Tuesdays and Fridays for [facility]. Other information: If you develop fever, chills, increased pain, drainage, redness or swelling please call our office. If after hours, respond to the ER. Should you experience any significant changes in your wound(s) or have any questions regarding your home care instructions please contact the wound center @ [phone]. If after hours, contact your primary care physician or go to the hospital emergency room. Scribing Attestation I attest, as the nurse, that I scribed these orders for the physician. I've reviewed the clinician's documentation and agree with the evaluation and plan as written. In addition the patient's wound demonstrates evidence of non-viable devitalized tissue which will continue to benefit from sharp debridement to help promote granulation and expedite healing. Negative pressure wound therapy will be utilized to facilitate granulation and removal of exudate and infectious material with the goal of expediting wound healing. We'll also defer additional antibiotics while monitoring for signs of recurrent infection. Electronic Signature(s) Signed By: Date: Roberto Khan MD 11/30/2017 15:59:11 Entered By: Roberto Khan on 11/30/2017 14:32:21
== END ==
PROVIDERS: Family Provider Specialist; PCP Specialist; Visit Provider Internal Medicine
DX: S81.802A Unspecified open wound, left lower leg, initial encounter (principal); L08.9 Local infection of the skin and subcutaneous tissue, unspecified
CPT/HCPCS: 11042; 97605

== ENCOUNTER → 2017-12-04 10:00 | Outpatient (CLI) | payer MEDICARE, OTHER, SELFPAY ==
--- NOTE | 2017-12-04 | OV.WND_ITS ---
Progress Note Details Patient Name: Oleg Saleh Patient Number: [id number] PatientPatientDate: 12/04/2017 Clinician: Dina Xiao Physician / Public Health Staff Nurse: Roberto Khan SUBJECTIVE Chief Complaint This information was obtained from the patient Venous ulcer on left leg. Allergies penicillin HPI This information was obtained from the patient 12/04/17. Seen by Dr. Khan. The patient does not report pain nor increased drainage associated with the chronic left lower leg surgical wound since her last visit and she's tolerating the wound vac without difficulty. 11/30/17. Seen by Dr. Khan. The patient does not report pain nor increased drainage associated with the chronic left lower leg surgical wound since her last visit and she's tolerating the wound vac without difficulty. She also completed her course of cefdinir that was treating a wound infection and does not report adverse side effects. 11/27/17. Seen by Dr. hKan. The patient does not report pain nor increased drainage associated with the chronic left lower leg surgical wound since her last visit and she's tolerating the wound vac without difficulty. She also continues on cefdinir for a wound infection and does not report adverse side effects. 11/23/17. Seen by Dr. Khan. The patient continues on cefdinir without reporting fevers or adverse side effects for the left lower leg infected hematoma that was recently evacuated by Dr. Espinoza. She's also receiving negative pressure wound therapy treating the surgical wound without reporting complications. 11/20/17. Seen by Dr. Khan. The patient continues on antibiotics without reporting fevers or adverse side effects for the left lower leg infected hematoma that was recently evacuated by Dr. Espinoza. She's also receiving negative pressure wound therapy without reporting complications. 11/16/17. Seen by Afshin Bella PA-C. The patient reports decreased drainage from her left lower leg wound since starting cefdinir, which she continues the course of. She also tells us today that she will be travelling to [facility] in 3 weeks. 11/09/17. Seen by Dr. Khan. The patient's new to our clinic and presents with a non-healing left lower leg trauma wound that occurred about 6 weeks ago when she hit the medial calf on a chair. I subsequently swelled and became infected at which time she reports taking a course of Bactrim that made her nauseated. She does not report pain at the site, fevers , or feeling unwell but has considerable periwound and lower leg swelling. She also does not have a history of diabetes or PAD. Past Medical History This information was obtained from the patient Patient has a medical history of: Hypertension Hyperlipidemia Arthritis Alcohol Abuse Complaints and Symptoms This information was obtained from the patient Patient complains of: General Notes: I have reviewed and concur with the Review of Systems and Past Family Social History documents completed by the clinician, I have reviewed and concur with the Wound Assessment document completed by the clinician Cardiovascular (Central/Peripheral): Lower extremity (leg) swelling Integumentary (Hair/Skin/Nails): Open Sore Prior Wound History: Bleeding, Drainage, Erythema Patient denies complaints or symptoms related to: Cardiovascular (Central): Irregular heart beat Cardiovascular (Central/Peripheral): Intermittent Claudication, Lower extremity (leg) resting pain Constitutional Symptoms (General Health): Chills, Fever Ear/Nose/Mouth/Throat: Hearing Loss / Aid Hematologic/Lymphatic: Bleeding / Clotting Disorders, Bleeding Tendency Musculoskeletal: Assistive Devices Neurological: Loss of Protective Sensation Psychiatric: Memory Loss Respiratory: Shortness of Breath OBJECTIVE Constitutional Vital signs reviewed and noted. Well developed. Alert. Clean appearing.. Height/ Length: 61 in (154.94 cm), Weight: 185 lbs (84.09 kgs), BMI: 35, Temperature: 98.8 ?F (37.11 ? C), Pulse: 54 bpm, Respiratory Rate: 18 breaths/min, Blood Pressure: 130/66 mmHg, Pulse Oximetry: 96 %. Ears, Nose, Mouth, and Throat: No clinically significant hearing loss on informal examination. Respiratory: No respiratory distress. Even respirations and without use of accessory muscles.. Cardiovascular: 1+ left lower extremity edema. Integumentary (Hair, Skin) No periwound erythema, warmth, or significant drainage. No periwound rashes appreciated or noted otherwise.. Refer to appropriate clinician wound documentation for this visit; left lower leg wound extends to subcut with base partially covered with pink granulation, remainder fibrin and slough. Wound #1 Left, Medial Leg is a chronic Full Thickness Venous Ulcer and has received a status of Not Healed. Subsequent wound encounter measurements are 4.6cm length x 2.3cm width x 0.8cm depth, with an area of 10.58 sq cm and a volume of 8.464 cubic cm. Necrotic adipose is exposed. No tunneling has been noted. No sinus tract has been noted. Undermining has been noted at 1:00 and ends at 5:00 with a maximum distance of 0.8cm. There is a moderate amount of sero-sanguineous drainage noted which has no odor. The patient reports a wound pain of level 0/10. The wound margin is irregular. Wound bed has Yes epithelialization, No eschar, Yes slough, Yes bright red, pink, firm granulation. The periwound skin moisture is normal. The periwound skin color is normal. The periwound skin exhibited: Edema, Induration. The periwound skin did not exhibit: Brawny Induration, Excoriation, Callus, Crepitus, Fluctuance, Friable, Rash. The temperature of the periwound skin is WNL. Periwound skin does not exhibit signs or symptoms of infection. Local Pulse is Palpable. Neurological: Cranial nerves grossly intact with symmetric function normal by informal observation.. ASSESSMENT Active Problems ICD-10 (Encounter Diagnosis) S81.802D - Unspecified open wound, left lower leg, subsequent encounter PROCEDURES Wound #1 Wound #1 (Venous Ulcer) is located on the left, medial leg. A skin/subcutaneous tissue level surgical debridement with a total area debrided of 10.58 sq cm was performed by Roberto Khan MD. Subcutaneous was removed along with devitalized tissue: exudate and slough. The following instrument(s) were used: curette. Pain control was achieved using 4% Lido. A time out was conducted prior to the start of the procedure. A minimal amount of bleeding was controlled with pressure. The procedure was tolerated well with a pain level of 0 throughout and a pain level of 0 following the procedure. Post Debridement Measurements: 4.6cm length x 2.3cm width x 0.9cm depth; with an area of 10.58 sq cm and a volume of 9.522 cubic cm; Additional Information Muscle fascia or bone removed and sent to pathology?: No PLAN Wound Orders: Wound #1 Left, Medial Leg Anesthetic Topical Xylocaine to wound bed. - In clinic. Cleanser Cleanse Wound: - Normal saline and gauze in clinic. May Shower. - Cover with cast protector. Dressings Wound Vac: - White foam to undermining, black foam to fill. KCI 125mmHg. You should remain on V.A.C. Therapy 24-hours a day. You should not be disconnected for more than 2 hours a day. The clear drape is waterproof and you may wash or shower with dressings in place ONLY if: You are disconnected from the therapy unit. The tubing is clamped. You take care not to soak the dressing. The therapy unit is an electrical system and should not become wet. If dressings become soiled, gently clean with mild soap and water. If the therapy is off for more than 15 minutes, the alarm will sound. If you need more time, press the alarm delay button. You can reset the alarm as many times as you need. If the THERAPY ON/OFF button is accidentally turned off, push the same button to turn the unit back on. The system will return to all the right settings and therapy will continue. Notify your physician/caregiver immediately if: You notice a significant change in color or quantity of the fluid. For example, if you see clear drainage turn to cloudy or bright red. You see the canister fill rapidly. You observe increased redness or odor from the wound. You experience increasing pain. The alarm will not turn off and you have been unable to solve the problem. The V.A.C. Therapy unit is turned off for more than 2 hours per day. You start any new medication. Change Dressing: - Leave in place until next visit. Additional Orders: Follow-Up Appointments Return Appointment: - - Sunday to remove KCI. Other information: If you develop fever, chills, increased pain, drainage, redness or swelling please call our office. If after hours, respond to the ER. Should you experience any significant changes in your wound(s) or have any questions regarding your home care instructions please contact the wound center @ [phone]. If after hours, contact your primary care physician or go to the hospital emergency room. Scribing Attestation I attest, as the nurse, that I scribed these orders for the physician. General Notes: Aquacel foam over satellite ulcer, please change foam dressing on Sunday night. I've reviewed the clinician's documentation and agree with the evaluation and plan as written. In addition the patient's wound demonstrates evidence of non-viable devitalized tissue which will continue to benefit from sharp debridement to help promote granulation and expedite healing. Negative pressure wound therapy will be utilized to facilitate granulation and removal of exudate and infectious material with the goal of expediting wound healing. Electronic Signature(s) Signed By: Date: Roberto Khan MD 12/05/2017 06:43:39 Entered By: Roberto Khan on 12/04/2017 12:39:07
== END ==
PROVIDERS: Family Provider Specialist; PCP Specialist; Visit Provider Internal Medicine
DX: S81.802A Unspecified open wound, left lower leg, initial encounter (principal)
CPT/HCPCS: 11042; 97605

== ENCOUNTER → 2017-12-07 10:16 | Outpatient (CLI) | payer MEDICARE, OTHER, SELFPAY ==
--- NOTE | 2017-12-07 | OV.WND_ITS ---
Progress Note Details Patient Name: Oleg Saleh Patient Number: [id number] PatientPatientDate: 12/07/2017 Clinician: Dina Xiao Clinician Cosigner: Ana Harper Physician / [employer]: Roberto Khan SUBJECTIVE Chief Complaint This information was obtained from the patient Venous ulcer on left leg. Allergies penicillin HPI This information was obtained from the patient 12/07/17. Seen by Dr. Khan. The patient does not report pain nor increased drainage associated with the chronic left lower leg surgical wound since her last visit and she's tolerating the wound vac without difficulty. Of note, she's leaving today for a 2 weeks vacation to [facility]. 12/04/17. Seen by Dr. Khan. The patient does not report pain nor increased drainage associated with the chronic left lower leg surgical wound since her last visit and she's tolerating the wound vac without difficulty. 11/30/17. Seen by Dr. Khan. The patient does not report pain nor increased drainage associated with the chronic left lower leg surgical wound since her last visit and she's tolerating the wound vac without difficulty. She also completed her course of cefdinir that was treating a wound infection and does not report adverse side effects. 11/27/17. Seen by Dr. Khan. The patient does not report pain nor increased drainage associated with the chronic left lower leg surgical wound since her last visit and she's tolerating the wound vac without difficulty. She also continues on cefdinir for a wound infection and does not report adverse side effects. 11/23/17. Seen by Dr. Khan. The patient continues on cefdinir without reporting fevers or adverse side effects for the left lower leg infected hematoma that was recently evacuated by Dr. Espinoza. She's also receiving negative pressure wound therapy treating the surgical wound without reporting complications. 11/20/17. Seen by Dr. Khan. The patient continues on antibiotics without reporting fevers or adverse side effects for the left lower leg infected hematoma that was recently evacuated by Dr. Espinoza. She's also receiving negative pressure wound therapy without reporting complications. 11/16/17. Seen by Afshin Bella PA-C. The patient reports decreased drainage from her left lower leg wound since starting cefdinir, which she continues the course of. She also tells us today that she will be travelling to [facility] in 3 weeks. 11/09/17. Seen by Dr. Khan. The patient's new to our clinic and presents with a non-healing left lower leg trauma wound that occurred about 6 weeks ago when she hit the medial calf on a chair. I subsequently swelled and became infected at which time she reports taking a course of Bactrim that made her nauseated. She does not report pain at the site, fevers , or feeling unwell but has considerable periwound and lower leg swelling. She also does not have a history of diabetes or PAD. Past Medical History This information was obtained from the patient Patient has a medical history of: Hypertension Hyperlipidemia Arthritis Alcohol Abuse Complaints and Symptoms This information was obtained from the patient Patient complains of: General Notes: I have reviewed and concur with the Review of Systems and Past Family Social History documents completed by the clinician, I have reviewed and concur with the Wound Assessment document completed by the clinician Cardiovascular (Central/Peripheral): Lower extremity (leg) swelling Integumentary (Hair/Skin/Nails): Open Sore Prior Wound History: Bleeding, Drainage, Erythema Patient denies complaints or symptoms related to: Cardiovascular (Central): Irregular heart beat Cardiovascular (Central/Peripheral): Intermittent Claudication, Lower extremity (leg) resting pain Constitutional Symptoms (General Health): Chills, Fever Ear/Nose/Mouth/Throat: Hearing Loss / Aid Hematologic/Lymphatic: Bleeding / Clotting Disorders, Bleeding Tendency Musculoskeletal: Assistive Devices Neurological: Loss of Protective Sensation Psychiatric: Memory Loss Respiratory: Shortness of Breath OBJECTIVE Constitutional Vital signs reviewed and noted. Well developed. Alert. Clean appearing.. Height/ Length: 61 in (154.94 cm), Weight: 187.7 lbs (85.32 kgs), BMI: 35.5, Temperature: 97.3 ?F ( 36.28 ?C), Pulse: 60 bpm, Respiratory Rate: 18 breaths/min, Blood Pressure: 119/69 mmHg, Pulse Oximetry: 96 %. Ears, Nose, Mouth, and Throat: No clinically significant hearing loss on informal examination. Respiratory: No respiratory distress. Even respirations and without use of accessory muscles.. Integumentary (Hair, Skin) No periwound erythema, warmth, or significant drainage. No periwound rashes appreciated or noted otherwise.. Refer to appropriate clinician wound documentation for this visit; left lower leg ulcer extends to subcut with base partially covered with pink granulation, remainder fibrin and slough. Wound #1 Left, Medial Leg is a chronic Full Thickness Venous Ulcer and has received a status of Not Healed. Subsequent wound encounter measurements are 4.8cm length x 2.4cm width x 0.6cm depth, with an area of 11.52 sq cm and a volume of 6.912 cubic cm. Necrotic adipose is exposed. No tunneling has been noted. No sinus tract has been noted. Undermining has been noted at 1:00 and ends at 5:00 with a maximum distance of 0.7cm. There is a moderate amount of sero-sanguineous drainage noted which has no odor. The patient reports a wound pain of level 0/10. The wound margin is irregular. Wound bed has Yes epithelialization, No eschar, Yes slough, Yes bright red, pink, firm granulation. The periwound skin moisture is normal. The periwound skin color is normal. The periwound skin exhibited: Edema, Induration. The periwound skin did not exhibit: Brawny Induration, Excoriation, Callus, Crepitus, Fluctuance, Friable, Rash. The temperature of the periwound skin is WNL. Periwound skin does not exhibit signs or symptoms of infection. Local Pulse is Palpable. Neurological: Cranial nerves grossly intact with symmetric function normal by informal observation.. ASSESSMENT Active Problems ICD-10 (Encounter Diagnosis) S81.802D - Unspecified open wound, left lower leg, subsequent encounter PROCEDURES Wound #1 Wound #1 (Venous Ulcer) is located on the left, medial leg. A skin/subcutaneous tissue level surgical debridement with a total area debrided of 11.52 sq cm was performed by Roberto Khan MD. Subcutaneous was removed along with devitalized tissue: slough. The following instrument(s) were used: curette. Pain control was achieved using 4% Lido. A time out was conducted prior to the start of the procedure. A minimal amount of bleeding was controlled with pressure. The procedure was tolerated well with a pain level of 0 throughout and a pain level of 0 following the procedure. Post Debridement Measurements: 4.8cm length x 2.4cm width x 0.7cm depth; with an area of 11.52 sq cm and a volume of 8.064 cubic cm; Additional Information Muscle fascia or bone removed and sent to pathology?: No PLAN Wound Orders: Wound #1 Left, Medial Leg Anesthetic Topical Xylocaine to wound bed. - In clinic only. Cleanser Cleanse Wound: - Normal saline and gauze, may use distilled water at home. May Shower. - Use cast protector. Topical Treatments Antibiotic/Antimicrobial Ointment/Cream. - Gentamicin ointment to wound base using a clean q-tip applicator swab. Dressings Pack wound: - Aquacel ag to fill wound, you may cut dressing to fit in wound bed. Cover and secure with: - Mepilex bordered foam. Change Dressing: - Every 2-3 days. Additional Orders: Compression/Edema Control Elevation of leg(s) above the level of the heart when sitting. Avoid prolonged standing in one place. Single Layer Compression Hose - Tetragrip F. Apply in the morning, remove at night before bed. Follow-Up Appointments Return Appointment: - - 12/25/17. Other information: If you develop fever, chills, increased pain, drainage, redness or swelling please call our office. If after hours, respond to the ER. Should you experience any significant changes in your wound(s) or have any questions regarding your home care instructions please contact the wound center @ [phone]. If after hours, contact your primary care physician or go to the hospital emergency room. Scribing Attestation I attest, as the nurse, that I scribed these orders for the physician. Medications prescribed: levofloxacin - oral 500 mg tablet once daily for 7 days starting 12/07/2017 General Notes: Please include skin tear when covering dressing with bordered foam. Levaquin prescribed to take while you're on vacation if you experience any s/s of infection. Dr. Khan would also like you to seek medical attention if you end up feeling like you need the antibiotic. I've reviewed the clinician's documentation and agree with the evaluation and plan as written. In addition, the patient's ulcer demonstrates evidence of non-viable devitalized tissue which will continue to benefit from sharp debridement to help promote granulation and expedite healing. Also, I've discontinued negative pressure wound therapy today due to her leaving the country and have given her a prescription for levofloxacin should the ulcer appear to be infected while she's away. If this occurs she's also been advised to seek medical attention at that time. Electronic Signature(s) Signed By: Date: Roberto Khan MD 12/07/2017 13:30:07 Entered By: Roberto Khan on 12/07/2017 13:23:51
== END ==
PROVIDERS: Family Provider Specialist; PCP Specialist; Visit Provider Internal Medicine
DX: S81.802A Unspecified open wound, left lower leg, initial encounter (principal)
CPT/HCPCS: 11042

== ENCOUNTER → 2017-12-25 10:03 | Outpatient (CLI) | payer MEDICARE, OTHER, SELFPAY ==
--- NOTE | 2017-12-25 | OV.WND_ITS ---
Progress Note Details Patient Name: Oleg Saleh Patient Number: [id number] PatientPatientDate: 12/25/2017 Clinician: Dina Xiao Clinician Cosigner: Ana Harper Physician / Rn Document Improvement: Roberto Khan SUBJECTIVE Chief Complaint This information was obtained from the patient Venous ulcer on left leg. Allergies penicillin HPI This information was obtained from the patient 12/25/17. Seen by Dr. Khan. The patient does not report pain nor increased drainage associated with the chronic left lower leg surgical wound since her last visit which was prior to vacation to [facility]. 12/07/17. Seen by Dr. Khan. The patient does not report pain nor increased drainage associated with the chronic left lower leg surgical wound since her last visit and she's tolerating the wound vac without difficulty. Of note, she's leaving today for a 2 weeks vacation to [facility]. 12/04/17. Seen by Dr. Khan. The patient does not report pain nor increased drainage associated with the chronic left lower leg surgical wound since her last visit and she's tolerating the wound vac without difficulty. 11/30/17. Seen by Dr. Khan. The patient does not report pain nor increased drainage associated with the chronic left lower leg surgical wound since her last visit and she's tolerating the wound vac without difficulty. She also completed her course of cefdinir that was treating a wound infection and does not report adverse side effects. 11/27/17. Seen by Dr. Khan. The patient does not report pain nor increased drainage associated with the chronic left lower leg surgical wound since her last visit and she's tolerating the wound vac without difficulty. She also continues on cefdinir for a wound infection and does not report adverse side effects. 11/23/17. Seen by Dr. Khan. The patient continues on cefdinir without reporting fevers or adverse side effects for the left lower leg infected hematoma that was recently evacuated by Dr. Espinoza. She's also receiving negative pressure wound therapy treating the surgical wound without reporting complications. 11/20/17. Seen by Dr. Khan. The patient continues on antibiotics without reporting fevers or adverse side effects for the left lower leg infected hematoma that was recently evacuated by Dr. Espinoza. She's also receiving negative pressure wound therapy without reporting complications. 11/16/17. Seen by Afshin Bella PA-C. The patient reports decreased drainage from her left lower leg wound since starting cefdinir, which she continues the course of. She also tells us today that she will be travelling to [facility] in 3 weeks. 11/09/17. Seen by Dr. Khan. The patient's new to our clinic and presents with a non-healing left lower leg trauma wound that occurred about 6 weeks ago when she hit the medial calf on a chair. I subsequently swelled and became infected at which time she reports taking a course of Bactrim that made her nauseated. She does not report pain at the site, fevers , or feeling unwell but has considerable periwound and lower leg swelling. She also does not have a history of diabetes or PAD. Past Medical History This information was obtained from the patient Patient has a medical history of: Hypertension Hyperlipidemia Arthritis Alcohol Abuse Complaints and Symptoms This information was obtained from the patient Patient complains of: General Notes: I have reviewed and concur with the Review of Systems and Past Family Social History documents completed by the clinician, I have reviewed and concur with the Wound Assessment document completed by the clinician Cardiovascular (Central/Peripheral): Lower extremity (leg) swelling Integumentary (Hair/Skin/Nails): Open Sore Prior Wound History: Bleeding, Drainage, Erythema Patient denies complaints or symptoms related to: Cardiovascular (Central): Irregular heart beat Cardiovascular (Central/Peripheral): Intermittent Claudication, Lower extremity (leg) resting pain Constitutional Symptoms (General Health): Chills, Fever Ear/Nose/Mouth/Throat: Hearing Loss / Aid Hematologic/Lymphatic: Bleeding / Clotting Disorders, Bleeding Tendency Musculoskeletal: Assistive Devices Neurological: Loss of Protective Sensation Psychiatric: Memory Loss Respiratory: Shortness of Breath OBJECTIVE Constitutional BP elevated; Afebrile; Alert and in no distress. Well developed. Alert. Clean appearing.. Height/Length: 61 in (154.94 cm), Weight: 184.9 lbs (84.05 kgs), BMI: 34.9, Temperature: 98.6 ?F (37 ?C), Pulse: 58 bpm, Respiratory Rate: 18 breaths/min, Blood Pressure : 147/77 mmHg, Pulse Oximetry: 98 %. Respiratory: No respiratory distress. Even respirations and without use of accessory muscles.. Cardiovascular: 1+ left lower extremity edema. Integumentary (Hair, Skin) No periwound erythema, warmth, or significant drainage. No periwound rashes appreciated or noted otherwise.. Refer to appropriate clinician wound documentation for this visit; left lower leg wound extends to subcut with base partially covered with pink granulation, remainder fibrin and slough. Wound #1 Left, Medial Leg is a chronic Full Thickness Venous Ulcer and has received a status of Not Healed. Subsequent wound encounter measurements are 3.9cm length x 1.6cm width x 0.8cm depth, with an area of 6.24 sq cm and a volume of 4.992 cubic cm. Necrotic adipose is exposed. No tunneling has been noted. No sinus tract has been noted. Undermining has been noted at 1:00 and ends at 5:00 with a maximum distance of 0.5cm. There is a moderate amount of sero-sanguineous drainage noted which has no odor. The patient reports a wound pain of level 0/10. The wound margin is irregular. Wound bed has Yes epithelialization, No eschar, Yes slough, Yes bright red, pink, firm granulation. The periwound skin moisture is normal. The periwound skin color is normal. The periwound skin exhibited: Edema, Induration. The periwound skin did not exhibit: Brawny Induration, Excoriation, Callus, Crepitus, Fluctuance, Friable, Rash. The temperature of the periwound skin is WNL. Periwound skin does not exhibit signs or symptoms of infection. Local Pulse is Palpable. Neurological: Cranial nerves grossly intact with symmetric function normal by informal observation.. ASSESSMENT Active Problems ICD-10 (Encounter Diagnosis) S81.802D - Unspecified open wound, left lower leg, subsequent encounter PROCEDURES Wound #1 Wound #1 (Venous Ulcer) is located on the left, medial leg. A skin/subcutaneous tissue level surgical debridement with a total area debrided of 6.24 sq cm was performed by Roberto Khan MD. Subcutaneous was removed along with devitalized tissue: exudate and slough. The following instrument(s) were used: curette. Pain control was achieved using 4% Lido. A time out was conducted prior to the start of the procedure. A moderate amount of bleeding was controlled with pressure. The procedure was tolerated well with a pain level of 0 throughout and a pain level of 0 following the procedure. Post Debridement Measurements: 3.9cm length x 1.6cm width x 0.9cm depth; with an area of 6.24 sq cm and a volume of 5.616 cubic cm; Additional Information Muscle fascia or bone removed and sent to pathology?: No PLAN Wound Orders: Wound #1 Left, Medial Leg Anesthetic Topical Xylocaine to wound bed. - In clinic only. Cleanser Cleanse Wound: - Normal saline and gauze, may use distilled water at home. May Shower. - Use cast protector. Dressings Wound Vac: - Black foam to base. KCI at 125mmHg. Change Dressing: - Leave in place until next visit. Additional Orders: Compression/Edema Control Elevation of leg(s) above the level of the heart when sitting. Avoid prolonged standing in one place. Single Layer Compression Hose - Tetragrip F. Apply in the morning, remove at night before bed. Follow-Up Appointments Return Appointment: - - Sunday for KCI dressing change, possible SNAP if approved by Sunday. Other information: If you develop fever, chills, increased pain, drainage, redness or swelling please call our office. If after hours, respond to the ER. Should you experience any significant changes in your wound(s) or have any questions regarding your home care instructions please contact the wound center @ [phone]. If after hours, contact your primary care physician or go to the hospital emergency room. Scribing Attestation I attest, as the nurse, that I scribed these orders for the physician. I've reviewed the clinician's documentation and agree with the evaluation and plan as written. In addition the patient's wound demonstrates evidence of non-viable devitalized tissue which will continue to benefit from sharp debridement to help promote granulation and expedite healing. Negative pressure wound therapy will be utilized to facilitate granulation and removal of exudate and infectious material with the goal of expediting wound healing. Also, I've restarted the wound today following interruption of treatment while she was away on vacation. Electronic Signature(s) Signed By: Date: Roberto Khan MD 12/26/2017 07:32:51 Entered By: Roberto Khan on 12/26/2017 07:19:55
== END ==
PROVIDERS: Family Provider Specialist; PCP Specialist; Visit Provider Internal Medicine
DX: S81.802A Unspecified open wound, left lower leg, initial encounter (principal)
CPT/HCPCS: 11042; 97605

== ENCOUNTER → 2018-01-01 09:48 | Outpatient (CLI) | payer MEDICARE, OTHER, SELFPAY | PROVIDERS: Family Provider Specialist; PCP Specialist; Visit Provider Internal Medicine | DX: S81.802A Unspecified open wound, left lower leg, initial encounter (principal); T81.31XD Disruption of external operation (surgical) wound, not elsewhere classified, subsequent encounter | CPT/HCPCS: 11042; 97607 ==

== ENCOUNTER → 2018-01-04 09:41 | Outpatient (CLI) | payer MEDICARE, OTHER, SELFPAY | PROVIDERS: Family Provider Specialist; PCP Specialist; Visit Provider Internal Medicine | DX: S81.802A Unspecified open wound, left lower leg, initial encounter (principal); T81.31XD Disruption of external operation (surgical) wound, not elsewhere classified, subsequent encounter | CPT/HCPCS: 99212 ==

== ENCOUNTER → 2018-01-08 15:20 | Outpatient (CLI) | payer MEDICARE, OTHER, SELFPAY ==
--- NOTE | 2018-01-08 | OV.WND_ITS ---
Progress Note Details Patient Name: Oleg Saleh Patient Number: [id number] PatientPatientDate: 01/08/2018 Clinician: Shilpi Morgan Clinician Cosigner: Ana Harper Physician / Security Guards Dispatcher: Roberto Khan SUBJECTIVE Chief Complaint This information was obtained from the patient Venous ulcer on left leg. Allergies penicillin HPI This information was obtained from the patient 01/08/18. Seen by Dr. Khan. The patient does not report pain nor increased drainage associated with the chronic left lower leg surgical wound since her last visit and she states the previously described pruritus over the arms and legs has improved somewhat since starting to apply hydrocortisone cream to the affected areas. 01/01/18. Seen by Dr. Khan. The patient does not report pain nor increased drainage associated with the chronic left lower leg surgical wound since her last visit. She does report some persistent itching over the lower legs and arms she feels may be related to bug bites that occurred during her recent visit to [facility]. 12/25/17. Seen by Dr. Khan. The patient does not report pain nor increased drainage associated with the chronic left lower leg surgical wound since her last visit which was prior to vacation to [facility]. 12/07/17. Seen by Dr. Khan. The patient does not report pain nor increased drainage associated with the chronic left lower leg surgical wound since her last visit and she's tolerating the wound vac without difficulty. Of note, she's leaving today for a 2 weeks vacation to [facility]. 12/04/17. Seen by Dr. Khan. The patient does not report pain nor increased drainage associated with the chronic left lower leg surgical wound since her last visit and she's tolerating the wound vac without difficulty. 11/30/17. Seen by Dr. Khan. The patient does not report pain nor increased drainage associated with the chronic left lower leg surgical wound since her last visit and she's tolerating the wound vac without difficulty. She also completed her course of cefdinir that was treating a wound infection and does not report adverse side effects. 11/27/17. Seen by Dr. Khan. The patient does not report pain nor increased drainage associated with the chronic left lower leg surgical wound since her last visit and she's tolerating the wound vac without difficulty. She also continues on cefdinir for a wound infection and does not report adverse side effects. 11/23/17. Seen by Dr. Khan. The patient continues on cefdinir without reporting fevers or adverse side effects for the left lower leg infected hematoma that was recently evacuated by Dr. Espinoza. She's also receiving negative pressure wound therapy treating the surgical wound without reporting complications. 11/20/17. Seen by Dr. Khan. The patient continues on antibiotics without reporting fevers or adverse side effects for the left lower leg infected hematoma that was recently evacuated by Dr. Espinoza. She's also receiving negative pressure wound therapy without reporting complications. 11/16/17. Seen by Afshin Bella PA-C. The patient reports decreased drainage from her left lower leg wound since starting cefdinir, which she continues the course of. She also tells us today that she will be travelling to [facility] in 3 weeks. 11/09/17. Seen by Dr. Khan. The patient's new to our clinic and presents with a non-healing left lower leg trauma wound that occurred about 6 weeks ago when she hit the medial calf on a chair. I subsequently swelled and became infected at which time she reports taking a course of Bactrim that made her nauseated. She does not report pain at the site, fevers , or feeling unwell but has considerable periwound and lower leg swelling. She also does not have a history of diabetes or PAD. Family History This information was obtained from the patient Cancer - Mother, Heart Disease - Father, Lung Disease - Mother Social History This information was obtained from the patient Alcohol Use - 3/ day, Caffeine Use - occasional, Children - 1, Lives in - Private home, Marital Status, Retired - Teacher Past Medical History This information was obtained from the patient Patient has a medical history of: Hypertension Hyperlipidemia Arthritis Alcohol Abuse Surgical History This information was obtained from the patient Patient has a surgical history of: Bilateral TKA cataract removal Complaints and Symptoms This information was obtained from the patient Patient complains of: General Notes: I have reviewed and concur with the Review of Systems and Past Family Social History documents completed by the clinician, I have reviewed and concur with the Wound Assessment document completed by the clinician Cardiovascular (Central/Peripheral): Lower extremity (leg) swelling Integumentary (Hair/Skin/Nails): Open Sore Prior Wound History: Bleeding, Drainage, Erythema Patient denies complaints or symptoms related to: Cardiovascular (Central): Irregular heart beat Cardiovascular (Central/Peripheral): Intermittent Claudication, Lower extremity (leg) resting pain Constitutional Symptoms (General Health): Chills, Fever Ear/Nose/Mouth/Throat: Hearing Loss / Aid Hematologic/Lymphatic: Bleeding / Clotting Disorders, Bleeding Tendency Musculoskeletal: Assistive Devices Neurological: Loss of Protective Sensation Psychiatric: Memory Loss Respiratory: Shortness of Breath OBJECTIVE Constitutional BP elevated; Afebrile; Alert and in no distress. Well developed. Alert. Clean appearing.. Height/Length: 61 in (154.94 cm), Weight: 184 lbs (83.64 kgs), BMI: 34.8, Temperature: 98.5 ?F (36.94 ?C), Pulse: 64 bpm, Respiratory Rate: 18 breaths/min, Blood Pressure: 137/79 mmHg, Pulse Oximetry: 95 %. Ears, Nose, Mouth, and Throat: No clinically significant hearing loss on informal examination. Respiratory: No respiratory distress. Even respirations and without use of accessory muscles.. Cardiovascular: 1+ left lower extremity edema. Integumentary (Hair, Skin) No periwound erythema, warmth, or significant drainage. No periwound rashes appreciated or noted otherwise.. Refer to appropriate clinician wound documentation for this visit; left lower leg wound extends to subcut with base partially covered with pink granulation, remainder fibrin and slough. Wound #1 Left, Medial Leg is a chronic Full Thickness Venous Ulcer and has received a status of Not Healed. Subsequent wound encounter measurements are 3.2cm length x 1.1cm width x 0.4cm depth, with an area of 3.52 sq cm and a volume of 1.408 cubic cm. Necrotic adipose is exposed. No tunneling has been noted. No sinus tract has been noted. Undermining has been noted at 1:00 and ends at 2:00 with a maximum distance of 0.3cm. There is a moderate amount of sero-sanguineous drainage noted which has no odor. The patient reports a wound pain of level 0/10. The wound margin is rolled. Wound bed has No epithelialization, No eschar, Yes slough, Yes pink, firm granulation. The periwound skin moisture is normal. The periwound skin color is normal. The periwound skin exhibited: Edema, Induration. The periwound skin did not exhibit: Brawny Induration, Excoriation, Callus, Crepitus, Fluctuance, Friable, Rash. The temperature of the periwound skin is WNL. Periwound skin does not exhibit signs or symptoms of infection. Local Pulse is Palpable. Neurological: Cranial nerves grossly intact with symmetric function normal by informal observation.. ASSESSMENT Active Problems ICD-10 (Encounter Diagnosis) S81.802D - Unspecified open wound, left lower leg, subsequent encounter (Encounter Diagnosis) L29.8 - Other pruritus PROCEDURES Wound #1 Wound #1 (Venous Ulcer) is located on the left, medial leg. A skin/subcutaneous tissue level surgical debridement with a total area debrided of 3.52 sq cm was performed by Roberto Khan MD. Subcutaneous was removed along with devitalized tissue: slough. The following instrument(s) were used: curette. Pain control was achieved using 4% Lido. A time out was conducted prior to the start of the procedure. A minimal amount of bleeding was controlled with n/a. The procedure was tolerated well with a pain level of 0 throughout and a pain level of 0 following the procedure. Post Debridement Measurements: 3.2cm length x 1.1cm width x 0.5cm depth; with an area of 3.52 sq cm and a volume of 1.76 cubic cm; Wound #1 (Venous Ulcer) is located on the left, medial leg. A Disposable Wound Vac Application < 50 Sq Cm procedure was performed for the lower left extremity by Roberto Khan MD. A time out was conducted prior to the start of the procedure. The procedure was tolerated well. General Notes: SNAP 125 mmHg Additional Information Muscle fascia or bone removed and sent to pathology?: No PLAN Wound Orders: Wound #1 Left, Medial Leg Cleanser Cleanse Wound: - In clinic, Normal saline. May shower with SNAP dressing Dressings SNAP Dressing Follow-Up Appointments Return Appointment: - - Sunday and Sunday. Other information: If you develop fever, chills, increased pain, drainage, redness or swelling please call our office. If after hours, respond to the ER. Should you experience any significant changes in your wound(s) or have any questions regarding your home care instructions please contact the wound center @ [phone]. If after hours, contact your primary care physician or go to the hospital emergency room. Scribing Attestation I attest, as the nurse, that I scribed these orders for the physician. I've reviewed the clinician's documentation and agree with the evaluation and plan as written. In addition the patient's wound demonstrates evidence of non-viable devitalized tissue which will continue to benefit from sharp debridement to help promote granulation and expedite healing. Negative pressure wound therapy will be utilized to facilitate granulation and removal of exudate and infectious material with the goal of expediting wound healing. Also, the patient will continue to use the hydrocortisone cream until her pruritus resolves. Electronic Signature(s) Signed By: Date: Roberto Khan MD 01/08/2018 16:47:11 Entered By: Roberto Khan on 01/08/2018 13:37:20
== END ==
PROVIDERS: Family Provider Specialist; PCP Specialist; Visit Provider Internal Medicine
DX: S81.802A Unspecified open wound, left lower leg, initial encounter (principal); L29.8 Other pruritus
CPT/HCPCS: 11042; 97607

== ENCOUNTER → 2018-01-11 09:50 | Outpatient (CLI) | payer MEDICARE, OTHER, SELFPAY ==
--- NOTE | 2018-01-11 | OV.WND_ITS ---
Progress Note Details Patient Name: Oleg Saleh Patient Number: [id number] PatientPatientDate: 01/11/2018 Clinician: Ivory Ramirez Clinician Cosigner: Ana Harper Physician / Landscaping Specialist: Roberto Khan SUBJECTIVE Chief Complaint This information was obtained from the patient Venous ulcer on left leg. Allergies penicillin HPI This information was obtained from the patient 01/11/18. Seen by Dr. Khan. The patient does not report pain nor increased drainage associated with the chronic left lower leg surgical wound since her last visit and she states her wound vac started leaking and was removed last Sunday. 01/08/18. Seen by Dr. Khan. The patient does not report pain nor increased drainage associated with the chronic left lower leg surgical wound since her last visit and she states the previously described pruritus over the arms and legs has improved somewhat since starting to apply hydrocortisone cream to the affected areas. 01/01/18. Seen by Dr. Khan. The patient does not report pain nor increased drainage associated with the chronic left lower leg surgical wound since her last visit. She does report some persistent itching over the lower legs and arms she feels may be related to bug bites that occurred during her recent visit to [facility]. 12/25/17. Seen by Dr. Khan. The patient does not report pain nor increased drainage associated with the chronic left lower leg surgical wound since her last visit which was prior to vacation to [facility]. 12/07/17. Seen by Dr. Khan. The patient does not report pain nor increased drainage associated with the chronic left lower leg surgical wound since her last visit and she's tolerating the wound vac without difficulty. Of note, she's leaving today for a [address] [facility]. 12/04/17. Seen by Dr. Khan. The patient does not report pain nor increased drainage associated with the chronic left lower leg surgical wound since her last visit and she's tolerating the wound vac without difficulty. 11/30/17. Seen by Dr. Khan. The patient does not report pain nor increased drainage associated with the chronic left lower leg surgical wound since her last visit and she's tolerating the wound vac without difficulty. She also completed her course of cefdinir that was treating a wound infection and does not report adverse side effects. 11/27/17. Seen by Dr. Khan. The patient does not report pain nor increased drainage associated with the chronic left lower leg surgical wound since her last visit and she's tolerating the wound vac without difficulty. She also continues on cefdinir for a wound infection and does not report adverse side effects. 11/23/17. Seen by Dr. Khan. The patient continues on cefdinir without reporting fevers or adverse side effects for the left lower leg infected hematoma that was recently evacuated by Dr. Espinoza. She's also receiving negative pressure wound therapy treating the surgical wound without reporting complications. 11/20/17. Seen by Dr. Khan. The patient continues on antibiotics without reporting fevers or adverse side effects for the left lower leg infected hematoma that was recently evacuated by Dr. Espinoza. She's also receiving negative pressure wound therapy without reporting complications. 11/16/17. Seen by Afshin Bella PA-C. The patient reports decreased drainage from her left lower leg wound since starting cefdinir, which she continues the course of. She also tells us today that she will be travelling to [facility] in 3 weeks. 11/09/17. Seen by Dr. Khan. The patient's new to our clinic and presents with a non-healing left lower leg trauma wound that occurred about 6 weeks ago when she hit the medial calf on a chair. I subsequently swelled and became infected at which time she reports taking a course of Bactrim that made her nauseated. She does not report pain at the site, fevers , or feeling unwell but has considerable periwound and lower leg swelling. She also does not have a history of diabetes or PAD. Past Medical History This information was obtained from the patient Patient has a medical history of: Hypertension Hyperlipidemia Arthritis Alcohol Abuse Complaints and Symptoms This information was obtained from the patient Patient complains of: General Notes: I have reviewed and concur with the Review of Systems and Past Family Social History documents completed by the clinician, I have reviewed and concur with the Wound Assessment document completed by the clinician Cardiovascular (Central/Peripheral): Lower extremity (leg) swelling Integumentary (Hair/Skin/Nails): Open Sore Prior Wound History: Bleeding, Drainage, Erythema Patient denies complaints or symptoms related to: Cardiovascular (Central): Irregular heart beat Cardiovascular (Central/Peripheral): Intermittent Claudication, Lower extremity (leg) resting pain Constitutional Symptoms (General Health): Chills, Fever Ear/Nose/Mouth/Throat: Hearing Loss / Aid Hematologic/Lymphatic: Bleeding / Clotting Disorders, Bleeding Tendency Musculoskeletal: Assistive Devices Neurological: Loss of Protective Sensation Psychiatric: Memory Loss Respiratory: Shortness of Breath OBJECTIVE Constitutional BP elevated; Afebrile; Alert and in no distress. Well developed. Alert. Clean appearing.. Height/Length: 61 in (154.94 cm), Weight: 184 lbs (83.64 kgs), BMI: 34.8, Temperature: 96.8 ?F (36 ?C), Pulse: 63 bpm, Respiratory Rate: 18 breaths/min, Blood Pressure: 160 /85 mmHg, Pulse Oximetry: 97 %. Respiratory: No respiratory distress. Even respirations and without use of accessory muscles.. Cardiovascular: Affected extremity exhibits no peripheral edema or cyanosis, is warm, and is well perfused. Capillary refill is less than 2 seconds. Integumentary (Hair, Skin) No periwound erythema, warmth, or significant drainage. No periwound rashes appreciated or noted otherwise.. Refer to appropriate clinician wound documentation for this visit; left lower leg wound extends to subcut with base partially covered with pink granulation, remainder fibrin and slough. Wound #1 Left, Medial Leg is a chronic Full Thickness Venous Ulcer and has received a status of Not Healed. Subsequent wound encounter measurements are 2.2cm length x 0.9cm width x 0.3cm depth, with an area of 1.98 sq cm and a volume of 0.594 cubic cm. No tunneling has been noted. No sinus tract has been noted. Undermining has been noted at 1:00 and ends at 2:00 with a maximum distance of 0.6cm. There is a moderate amount of seropurulent drainage noted which has no odor. The patient reports a wound pain of level 0/ 10. The wound margin is rolled. Wound bed has No epithelialization, No eschar, Yes slough, Yes bright red, pink, firm granulation. The periwound skin moisture is normal. The periwound skin color is normal. The periwound skin exhibited: Edema, Induration. The periwound skin did not exhibit: Brawny Induration, Excoriation, Callus, Crepitus, Fluctuance, Friable, Rash. The temperature of the periwound skin is WNL. Periwound skin does not exhibit signs or symptoms of infection. Local Pulse is Palpable. Neurological: Cranial nerves grossly intact with symmetric function normal by informal observation.. ASSESSMENT Active Problems ICD-10 (Encounter Diagnosis) S81.802D - Unspecified open wound, left lower leg, subsequent encounter PROCEDURES Wound #1 Wound #1 (Venous Ulcer) is located on the left, medial leg. A skin/subcutaneous tissue level surgical debridement with a total area debrided of 1.98 sq cm was performed by Roberto Khan MD. Subcutaneous was removed along with devitalized tissue: slough. The following instrument(s) were used: curette. Pain control was achieved using 4% Lido. A time out was conducted prior to the start of the procedure. A minimal amount of bleeding was controlled with n/a. The procedure was tolerated well with a pain level of 0 throughout and a pain level of 0 following the procedure. Post Debridement Measurements: 2.2cm length x 0.9cm width x 0.4cm depth; with an area of 1.98 sq cm and a volume of 0.792 cubic cm; Wound #1 (Venous Ulcer) is located on the left, medial leg. A Disposable Wound Vac Application < 50 Sq Cm procedure was performed for the lower left extremity by Roberto Khan MD. A time out was conducted prior to the start of the procedure. The procedure was tolerated well. General Notes: SNAP 125 mmHg Additional Information Muscle fascia or bone removed and sent to pathology?: No PLAN Wound Orders: Wound #1 Left, Medial Leg Anesthetic Topical Xylocaine to wound bed. - In clinic only. Cleanser Cleanse Wound: - In clinic, Normal saline. May shower with SNAP dressing Dressings SNAP Dressing Follow-Up Appointments Return Appointment: - - Sunday and Sunday. Other information: If you develop fever, chills, increased pain, drainage, redness or swelling please call our office. If after hours, respond to the ER. Should you experience any significant changes in your wound(s) or have any questions regarding your home care instructions please contact the wound center @ [phone]. If after hours, contact your primary care physician or go to the hospital emergency room. Scribing Attestation I attest, as the nurse, that I scribed these orders for the physician. I've reviewed the clinician's documentation and agree with the evaluation and plan as written. In addition the patient's wound demonstrates evidence of non-viable devitalized tissue which will continue to benefit from sharp debridement to help promote granulation and expedite healing. Negative pressure wound therapy will be utilized to facilitate granulation and removal of exudate and infectious material with the goal of expediting wound healing. Electronic Signature(s) Signed By: Date: Roberto Khan MD 01/11/2018 13:36:07 Entered By: Roberto Khan on 01/11/2018 13:28:54
== END ==
PROVIDERS: Family Provider Specialist; PCP Specialist; Visit Provider Internal Medicine
DX: S81.802A Unspecified open wound, left lower leg, initial encounter (principal)
CPT/HCPCS: 11042; 97607

== ENCOUNTER → 2018-01-15 09:32 | Outpatient (CLI) | payer MEDICARE, OTHER, SELFPAY | PROVIDERS: Family Provider Specialist; PCP Specialist; Visit Provider Internal Medicine | DX: I87.2 Venous insufficiency (chronic) (peripheral) (principal); L97.822 Non-pressure chronic ulcer of other part of left lower leg with fat layer exposed | CPT/HCPCS: 11042; 97607 ==

== ENCOUNTER → 2018-01-18 09:49 | Outpatient (CLI) | payer MEDICARE, OTHER, SELFPAY | PROVIDERS: Family Provider Specialist; PCP Specialist; Visit Provider Internal Medicine | DX: I87.2 Venous insufficiency (chronic) (peripheral) (principal); L97.822 Non-pressure chronic ulcer of other part of left lower leg with fat layer exposed | CPT/HCPCS: 11042 ==

== ENCOUNTER → 2018-01-25 09:42 | Outpatient (CLI) | payer MEDICARE, OTHER, SELFPAY ==
--- NOTE | 2018-01-25 | OV.WND_ITS ---
Progress Note Details Patient Name: Oleg Saleh Patient Number: [id number] PatientPatientDate: 01/25/2018 Clinician: Wandy Daugherty Clinician Cosigner: Ana Harper Physician / Machinist Instructor: Roberto Khan SUBJECTIVE Chief Complaint This information was obtained from the patient Venous ulcer on left leg. Allergies penicillin HPI This information was obtained from the patient 01/25/18. Seen by Dr. Khan. The patient does not report pain nor increased drainage associated with the chronic left lower leg surgical wound since her last visit. 01/18/18. Seen by Dr. Khan. The patient does not report pain nor increased drainage associated with the chronic left lower leg surgical wound since her last visit and she's requesting a break from [facility] this week. 01/15/18. Seen by Dr. Khan. The patient does not report pain nor increased drainage associated with the chronic left lower leg surgical wound since her last visit. 01/11/18. Seen by Dr. Khan. The patient does not report pain nor increased drainage associated with the chronic left lower leg surgical wound since her last visit and she states her wound vac started leaking and was removed last Sunday. 01/08/18. Seen by Dr. Khan. The patient does not report pain nor increased drainage associated with the chronic left lower leg surgical wound since her last visit and she states the previously described pruritus over the arms and legs has improved somewhat since starting to apply hydrocortisone cream to the affected areas. 01/01/18. Seen by Dr. Khan. The patient does not report pain nor increased drainage associated with the chronic left lower leg surgical wound since her last visit. She does report some persistent itching over the lower legs and arms she feels may be related to bug bites that occurred during her recent visit to [facility]. 12/25/17. Seen by Dr. Khan. The patient does not report pain nor increased drainage associated with the chronic left lower leg surgical wound since her last visit which was prior to vacation to [facility]. 12/07/17. Seen by Dr. Khan. The patient does not report pain nor increased drainage associated with the chronic left lower leg surgical wound since her last visit and she's tolerating the wound vac without difficulty. Of note, she's leaving today for a 2 weeks vacation to [facility]. 12/04/17. Seen by Dr. Khan. The patient does not report pain nor increased drainage associated with the chronic left lower leg surgical wound since her last visit and she's tolerating the wound vac without difficulty. 11/30/17. Seen by Dr. Khan. The patient does not report pain nor increased drainage associated with the chronic left lower leg surgical wound since her last visit and she's tolerating the wound vac without difficulty. She also completed her course of cefdinir that was treating a wound infection and does not report adverse side effects. 11/27/17. Seen by Dr. Khan. The patient does not report pain nor increased drainage associated with the chronic left lower leg surgical wound since her last visit and she's tolerating the wound vac without difficulty. She also continues on cefdinir for a wound infection and does not report adverse side effects. 11/23/17. Seen by Dr. Khan. The patient continues on cefdinir without reporting fevers or adverse side effects for the left lower leg infected hematoma that was recently evacuated by Dr. Espinoza. She's also receiving negative pressure wound therapy treating the surgical wound without reporting complications. 11/20/17. Seen by Dr. Khan. The patient continues on antibiotics without reporting fevers or adverse side effects for the left lower leg infected hematoma that was recently evacuated by Dr. Espinoza. She's also receiving negative pressure wound therapy without reporting complications. 11/16/17. Seen by Afshin Bella PA-C. The patient reports decreased drainage from her left lower leg wound since starting cefdinir, which she continues the course of. She also tells us today that she will be travelling to [facility] in 3 weeks. 11/09/17. Seen by Dr. Khan. The patient's new to our clinic and presents with a non-healing left lower leg trauma wound that occurred about 6 weeks ago when she hit the medial calf on a chair. I subsequently swelled and became infected at which time she reports taking a course of Bactrim that made her nauseated. She does not report pain at the site, fevers , or feeling unwell but has considerable periwound and lower leg swelling. She also does not have a history of diabetes or PAD. Past Medical History This information was obtained from the patient Patient has a medical history of: Hypertension Hyperlipidemia Arthritis Alcohol Abuse Complaints and Symptoms This information was obtained from the patient Patient complains of: General Notes: I have reviewed and concur with the Review of Systems and Past Family Social History documents completed by the clinician, I have reviewed and concur with the Wound Assessment document completed by the clinician Cardiovascular (Central/Peripheral): Lower extremity (leg) swelling Integumentary (Hair/Skin/Nails): Open Sore Prior Wound History: Bleeding, Drainage, Erythema Patient denies complaints or symptoms related to: Cardiovascular (Central): Irregular heart beat Cardiovascular (Central/Peripheral): Intermittent Claudication, Lower extremity (leg) resting pain Constitutional Symptoms (General Health): Chills, Fever Ear/Nose/Mouth/Throat: Hearing Loss / Aid Hematologic/Lymphatic: Bleeding / Clotting Disorders, Bleeding Tendency Musculoskeletal: Assistive Devices Neurological: Loss of Protective Sensation Psychiatric: Memory Loss Respiratory: Shortness of Breath OBJECTIVE Constitutional Vital signs reviewed and noted. Well developed. Alert. Clean appearing.. Height/ Length: 59 in (149.86 cm), Weight: 186.6 lbs (84.82 kgs), BMI: 37.7, Temperature: 98.4 ?F ( 36.89 ?C), Pulse: 67 bpm, Respiratory Rate: 18 breaths/min, Blood Pressure: 132/76 mmHg, Pulse Oximetry: 96 %. Ears, Nose, Mouth, and Throat: No clinically significant hearing loss on informal examination. Cardiovascular: 1+ left lower extremity edema. Integumentary (Hair, Skin) No periwound erythema, warmth, or significant drainage. No periwound rashes appreciated or noted otherwise.. Refer to appropriate clinician wound documentation for this visit; left lower leg wound extends to subcut with base partially covered with pink granulation, remainder fibrin and slough. Wound #1 Left, Medial Leg is a chronic Full Thickness Venous Ulcer and has received a status of Not Healed. Subsequent wound encounter measurements are 0.2cm length x 0.1cm width x 0.1cm depth, with an area of 0.02 sq cm and a volume of 0.002 cubic cm. No tunneling has been noted. No sinus tract has been noted. No undermining has been noted. There is a moderate amount of serous drainage noted which has no odor. The patient reports a wound pain of level 0/10. The wound margin is rolled. Wound bed has Yes epithelialization, No eschar, No slough, Yes bright red, firm granulation. The periwound skin moisture is normal. The periwound skin color is normal. The periwound skin exhibited: Edema, Induration. The periwound skin did not exhibit: Brawny Induration, Excoriation, Callus, Crepitus, Fluctuance, Friable, Rash. The temperature of the periwound skin is WNL. Periwound skin does not exhibit signs or symptoms of infection. Local Pulse is Palpable. Neurological: Cranial nerves grossly intact with symmetric function normal by informal observation.. ASSESSMENT Active Problems ICD-10 (Encounter Diagnosis) S81.802D - Unspecified open wound, left lower leg, subsequent encounter PROCEDURES Wound #1 Wound #1 (Venous Ulcer) is located on the left, medial leg. A skin/subcutaneous tissue level surgical debridement with a total area debrided of 0.02 sq cm was performed by Roberto Khan MD. Subcutaneous was removed along with devitalized tissue: exudate and slough. The following instrument(s) were used: curette. Pain control was achieved using 4% Lido. A time out was conducted prior to the start of the procedure. A minimal amount of bleeding was controlled with pressure. The procedure was tolerated well with a pain level of 0 throughout and a pain level of 0 following the procedure. Post Debridement Measurements: 0.2cm length x 0.1cm width x 0.1cm depth; with an area of 0.02 sq cm and a volume of 0.002 cubic cm; Additional Information Muscle fascia or bone removed and sent to pathology?: No PLAN Wound Orders: Wound #1 Left, Medial Leg Anesthetic Topical Xylocaine to wound bed. - In clinic only. Cleanser Cleanse Wound: - In clinic, Normal saline. May use distilled water at home May Shower. - Please avoid getting tap water in wound or on dressing. Cover while in shower. Dressings Primary dressing: - Bordered foam. May use bandage with adhesive on all sides. Change Dressing: - Every other day Compression/Edema Control Elevation of leg(s) above the level of the heart when sitting. Single Layer Compression Wrap: - Tetra E Follow-Up Appointments Return Appointment: - - Two weeks not a Sunday. Other information: If you develop fever, chills, increased pain, drainage, redness or swelling please call our office. If after hours, respond to the ER. Should you experience any significant changes in your wound(s) or have any questions regarding your home care instructions please contact the wound center @ [phone]. If after hours, contact your primary care physician or go to the hospital emergency room. Scribing Attestation I attest, as the nurse, that I scribed these orders for the physician. I've reviewed the clinician's documentation and agree with the evaluation and plan as written. In addition the patient's wound demonstrates evidence of non-viable devitalized tissue which will continue to benefit from sharp debridement to help promote granulation and expedite healing. Electronic Signature(s) Signed By: Date: Roberto Khan MD 01/29/2018 12:06:17 Entered By: Roberto Khan on 01/29/2018 07:24:56
== END ==
PROVIDERS: Family Provider Specialist; PCP Specialist; Visit Provider Internal Medicine
DX: I87.2 Venous insufficiency (chronic) (peripheral) (principal); L97.822 Non-pressure chronic ulcer of other part of left lower leg with fat layer exposed
CPT/HCPCS: 11042

== ENCOUNTER → 2018-02-07 09:45 | Outpatient (CLI) | payer MEDICARE, OTHER, SELFPAY ==
--- NOTE | 2018-02-07 | OV.WND_ITS ---
Progress Note Details Patient Name: Oleg Saleh Patient Number: [id number] PatientPatientDate: 02/07/2018 Clinician: Dina Xiao Clinician Cosigner: Ana Harper Physician / Composite Engineer: Roberto Khan SUBJECTIVE Chief Complaint This information was obtained from the patient Venous ulcer on left leg. Allergies penicillin HPI This information was obtained from the patient 02/07/18. Seen by Dr. Khan. The nurse reports increased drainage overlying the proximal margin of the chronic left lower leg surgical wound and the patient reports some new, intermittent pain at the site. 01/25/18. Seen by Dr. Khan. The patient does not report pain nor increased drainage associated with the chronic left lower leg surgical wound since her last visit. 01/18/18. Seen by Dr. Khan. The patient does not report pain nor increased drainage associated with the chronic left lower leg surgical wound since her last visit and she's requesting a break from [facility] this week. 01/15/18. Seen by Dr. Khan. The patient does not report pain nor increased drainage associated with the chronic left lower leg surgical wound since her last visit. 01/11/18. Seen by Dr. Khan. The patient does not report pain nor increased drainage associated with the chronic left lower leg surgical wound since her last visit and she states her wound vac started leaking and was removed last Sunday. 01/08/18. Seen by Dr. Khan. The patient does not report pain nor increased drainage associated with the chronic left lower leg surgical wound since her last visit and she states the previously described pruritus over the arms and legs has improved somewhat since starting to apply hydrocortisone cream to the affected areas. 01/01/18. Seen by Dr. Khan. The patient does not report pain nor increased drainage associated with the chronic left lower leg surgical wound since her last visit. She does report some persistent itching over the lower legs and arms she feels may be related to bug bites that occurred during her recent visit to [facility]. 12/25/17. Seen by Dr. Khan. The patient does not report pain nor increased drainage associated with the chronic left lower leg surgical wound since her last visit which was prior to vacation to [facility]. 12/07/17. Seen by Dr. Khan. The patient does not report pain nor increased drainage associated with the chronic left lower leg surgical wound since her last visit and she's tolerating the wound vac without difficulty. Of note, she's leaving today for a 2 weeks vacation to [facility]. 12/04/17. Seen by Dr. Khan. The patient does not report pain nor increased drainage associated with the chronic left lower leg surgical wound since her last visit and she's tolerating the wound vac without difficulty. 11/30/17. Seen by Dr. Khan. The patient does not report pain nor increased drainage associated with the chronic left lower leg surgical wound since her last visit and she's tolerating the wound vac without difficulty. She also completed her course of cefdinir that was treating a wound infection and does not report adverse side effects. 11/27/17. Seen by Dr. Khan. The patient does not report pain nor increased drainage associated with the chronic left lower leg surgical wound since her last visit and she's tolerating the wound vac without difficulty. She also continues on cefdinir for a wound infection and does not report adverse side effects. 11/23/17. Seen by Dr. Khan. The patient continues on cefdinir without reporting fevers or adverse side effects for the left lower leg infected hematoma that was recently evacuated by Dr. Espinoza. She's also receiving negative pressure wound therapy treating the surgical wound without reporting complications. 11/20/17. Seen by Dr. Khan. The patient continues on antibiotics without reporting fevers or adverse side effects for the left lower leg infected hematoma that was recently evacuated by Dr. Espinoza. She's also receiving negative pressure wound therapy without reporting complications. 11/16/17. Seen by Afshin Bella PA-C. The patient reports decreased drainage from her left lower leg wound since starting cefdinir, which she continues the course of. She also tells us today that she will be travelling to [facility] in 3 weeks. 11/09/17. Seen by Dr. Khan. The patient's new to our clinic and presents with a non-healing left lower leg trauma wound that occurred about 6 weeks ago when she hit the medial calf on a chair. I subsequently swelled and became infected at which time she reports taking a course of Bactrim that made her nauseated. She does not report pain at the site, fevers , or feeling unwell but has considerable periwound and lower leg swelling. She also does not have a history of diabetes or PAD. Past Medical History This information was obtained from the patient Patient has a medical history of: Hypertension Hyperlipidemia Arthritis Alcohol Abuse Complaints and Symptoms This information was obtained from the patient Patient complains of: General Notes: I have reviewed and concur with the Review of Systems and Past Family Social History documents completed by the clinician, I have reviewed and concur with the Wound Assessment document completed by the clinician Cardiovascular (Central/Peripheral): Lower extremity (leg) swelling Integumentary (Hair/Skin/Nails): Open Sore Prior Wound History: Bleeding, Drainage, Erythema Patient denies complaints or symptoms related to: Cardiovascular (Central): Irregular heart beat Cardiovascular (Central/Peripheral): Intermittent Claudication, Lower extremity (leg) resting pain Constitutional Symptoms (General Health): Chills, Fever Ear/Nose/Mouth/Throat: Hearing Loss / Aid Hematologic/Lymphatic: Bleeding / Clotting Disorders, Bleeding Tendency Musculoskeletal: Assistive Devices Neurological: Loss of Protective Sensation Psychiatric: Memory Loss Respiratory: Shortness of Breath OBJECTIVE Constitutional Vital signs reviewed and noted. Well developed. Alert. Clean appearing.. Height/ Length: 59 in (149.86 cm), Weight: 186.6 lbs (84.82 kgs), BMI: 37.7, Temperature: 98.0 ?F ( 36.67 ?C), Pulse: 62 bpm, Respiratory Rate: 20 breaths/min, Blood Pressure: 122/75 mmHg, Pulse Oximetry: 98 %. Ears, Nose, Mouth, and Throat: No clinically significant hearing loss on informal examination. Cardiovascular: 1+ left lower extremity edema. Integumentary (Hair, Skin) Mild periwound erythema without warmth; base covered with adherent blue/green drainage. Refer to appropriate clinician wound documentation for this visit; left lower leg wound extends to subcut with base partially covered with pink granulation, remainder fibrin and slough. Wound #1 Left, Medial Leg is a chronic Full Thickness Venous Ulcer and has received a status of Not Healed. Subsequent wound encounter measurements are 1.4cm length x 0.6cm width with no measurable depth, with an area of 0.84 sq cm . No tunneling has been noted. No sinus tract has been noted. No undermining has been noted. There was no drainage noted. The patient reports a wound pain of level 0/10. The wound margin is rolled. Wound bed has Yes epithelialization, No eschar, Yes slough, No granulation. The periwound skin moisture is normal. The periwound skin color is normal. The periwound skin exhibited: Edema, Induration. The periwound skin did not exhibit: Brawny Induration, Excoriation, Callus, Crepitus, Fluctuance, Friable, Rash. The temperature of the periwound skin is WNL. Periwound skin does not exhibit signs or symptoms of infection. Local Pulse is Palpable. General Notes: Dried exudate present and measured, no open area visible at this time. Neurological: Cranial nerves grossly intact with symmetric function normal by informal observation.. ASSESSMENT Active Problems ICD-10 (Encounter Diagnosis) S81.802D - Unspecified open wound, left lower leg, subsequent encounter (Encounter Diagnosis) L08.9 - Local infection of the skin and subcutaneous tissue, unspecified PROCEDURES Wound #1 Wound #1 (Venous Ulcer) is located on the left, medial leg. A skin/subcutaneous tissue level surgical debridement with a total area debrided of 0.4 sq cm was performed by Roberto Khan MD. Subcutaneous was removed along with devitalized tissue: exudate and slough. The following instrument(s) were used: curette. Pain control was achieved using 4% Lido. A time out was conducted prior to the start of the procedure. A minimal amount of bleeding was controlled with pressure. The procedure was tolerated well with a pain level of 0 throughout and a pain level of 0 following the procedure. Post Debridement Measurements: 1cm length x 0.4cm width x 0.2cm depth; with an area of 0.4 sq cm and a volume of 0.08 cubic cm; Additional Information Muscle fascia or bone removed and sent to pathology?: No PLAN Wound Orders: Wound #1 Left, Medial Leg Anesthetic Topical Xylocaine to wound bed. - In clinic only. Cleanser Cleanse Wound: - In clinic, Normal saline. May use distilled water at home May Shower. - Please avoid getting tap water in wound or on dressing. Cover while in shower. Topical Treatments Antibiotic/Antimicrobial Ointment/Cream. - Gentamicin ointment. Dressings Cover and secure with: - Covrsite, may use bordered bandaid. Change Dressing: - Daily. Compression/Edema Control Elevation of leg(s) above the level of the heart when sitting. Single Layer Compression Wrap: - Tetragrip E. On in the morning, off at night. Follow-Up Appointments Return Appointment: - - One week. Other information: If you develop fever, chills, increased pain, drainage, redness or swelling please call our office. If after hours, respond to the ER. Should you experience any significant changes in your wound(s) or have any questions regarding your home care instructions please contact the wound center @ [phone]. If after hours, contact your primary care physician or go to the hospital emergency room. Scribing Attestation I attest, as the nurse, that I scribed these orders for the physician. I've reviewed the clinician's documentation and agree with the evaluation and plan as written. In addition the patient's wound demonstrates evidence of non-viable devitalized tissue which will continue to benefit from sharp debridement to help promote granulation and expedite healing. Also, the drainage has been cultured and the patient will apply topical gentamicin daily with dressing changes. Electronic Signature(s) Signed By: Date: Roberto Khan MD 02/08/2018 06:00:06 Entered By: Roberto Khan on 02/08/2018 05:53:45
== END ==
PROVIDERS: Family Provider Specialist; PCP Specialist; Visit Provider Internal Medicine
DX: L08.9 Local infection of the skin and subcutaneous tissue, unspecified (principal); I87.2 Venous insufficiency (chronic) (peripheral); L97.822 Non-pressure chronic ulcer of other part of left lower leg with fat layer exposed
CPT/HCPCS: 11042; 87070; 87075; 87077; 87147; 87186; 87205

== ENCOUNTER → 2018-02-14 09:56 | Outpatient (CLI) | payer MEDICARE, OTHER, SELFPAY ==
--- NOTE | 2018-02-14 | OV.WND_ITS ---
Progress Note Details Patient Name: Oleg Saleh Patient Number: [id number] PatientPatientDate: 02/14/2018 Clinician: Ivory Ramirez Clinician Cosigner: Wandy Daugherty Physician / Book Editor: Roberto Khan SUBJECTIVE Chief Complaint This information was obtained from the patient Venous ulcer on left leg. Allergies penicillin HPI This information was obtained from the patient 02/14/18. Seen by Dr. Khan. The patient does not report pain nor increased drainage associated with the chronic left lower leg surgical wound since her last visit. 02/07/18. Seen by Dr. Khan. The nurse reports increased drainage overlying the proximal margin of the chronic left lower leg surgical wound and the patient reports some new, intermittent pain at the site. 01/25/18. Seen by Dr. Khan. The patient does not report pain nor increased drainage associated with the chronic left lower leg surgical wound since her last visit. 01/18/18. Seen by Dr. Khan. The patient does not report pain nor increased drainage associated with the chronic left lower leg surgical wound since her last visit and she's requesting a break from [facility] this week. 01/15/18. Seen by Dr. Khan. The patient does not report pain nor increased drainage associated with the chronic left lower leg surgical wound since her last visit. 01/11/18. Seen by Dr. Khan. The patient does not report pain nor increased drainage associated with the chronic left lower leg surgical wound since her last visit and she states her wound vac started leaking and was removed last Sunday. 01/08/18. Seen by Dr. Khan. The patient does not report pain nor increased drainage associated with the chronic left lower leg surgical wound since her last visit and she states the previously described pruritus over the arms and legs has improved somewhat since starting to apply hydrocortisone cream to the affected areas. 01/01/18. Seen by Dr. Khan. The patient does not report pain nor increased drainage associated with the chronic left lower leg surgical wound since her last visit. She does report some persistent itching over the lower legs and arms she feels may be related to bug bites that occurred during her recent visit to [facility]. 12/25/17. Seen by Dr. Khan. The patient does not report pain nor increased drainage associated with the chronic left lower leg surgical wound since her last visit which was prior to vacation to [facility]. 12/07/17. Seen by Dr. Khan. The patient does not report pain nor increased drainage associated with the chronic left lower leg surgical wound since her last visit and she's tolerating the wound vac without difficulty. Of note, she's leaving today for a 2 weeks vacation to [facility]. 12/04/17. Seen by Dr. Khan. The patient does not report pain nor increased drainage associated with the chronic left lower leg surgical wound since her last visit and she's tolerating the wound vac without difficulty. 11/30/17. Seen by Dr. Khan. The patient does not report pain nor increased drainage associated with the chronic left lower leg surgical wound since her last visit and she's tolerating the wound vac without difficulty. She also completed her course of cefdinir that was treating a wound infection and does not report adverse side effects. 11/27/17. Seen by Dr. Khan. The patient does not report pain nor increased drainage associated with the chronic left lower leg surgical wound since her last visit and she's tolerating the wound vac without difficulty. She also continues on cefdinir for a wound infection and does not report adverse side effects. 11/23/17. Seen by Dr. Khan. The patient continues on cefdinir without reporting fevers or adverse side effects for the left lower leg infected hematoma that was recently evacuated by Dr. Espinoza. She's also receiving negative pressure wound therapy treating the surgical wound without reporting complications. 11/20/17. Seen by Dr. Khan. The patient continues on antibiotics without reporting fevers or adverse side effects for the left lower leg infected hematoma that was recently evacuated by Dr. Espinoza. She's also receiving negative pressure wound therapy without reporting complications. 11/16/17. Seen by Afshin Bella PA-C. The patient reports decreased drainage from her left lower leg wound since starting cefdinir, which she continues the course of. She also tells us today that she will be travelling to [facility] in 3 weeks. 11/09/17. Seen by Dr. Khan. The patient's new to our clinic and presents with a non-healing left lower leg trauma wound that occurred about 6 weeks ago when she hit the medial calf on a chair. I subsequently swelled and became infected at which time she reports taking a course of Bactrim that made her nauseated. She does not report pain at the site, fevers , or feeling unwell but has considerable periwound and lower leg swelling. She also does not have a history of diabetes or PAD. Past Medical History This information was obtained from the patient Patient has a medical history of: Hypertension Hyperlipidemia Arthritis Alcohol Abuse Complaints and Symptoms This information was obtained from the patient Patient complains of: General Notes: I have reviewed and concur with the Review of Systems and Past Family Social History documents completed by the clinician, I have reviewed and concur with the Wound Assessment document completed by the clinician Cardiovascular (Central/Peripheral): Lower extremity (leg) swelling Integumentary (Hair/Skin/Nails): Open Sore Prior Wound History: Bleeding, Drainage, Erythema Patient denies complaints or symptoms related to: Cardiovascular (Central): Irregular heart beat Cardiovascular (Central/Peripheral): Intermittent Claudication, Lower extremity (leg) resting pain Constitutional Symptoms (General Health): Chills, Fever Ear/Nose/Mouth/Throat: Hearing Loss / Aid Hematologic/Lymphatic: Bleeding / Clotting Disorders, Bleeding Tendency Musculoskeletal: Assistive Devices Neurological: Loss of Protective Sensation Psychiatric: Memory Loss Respiratory: Shortness of Breath OBJECTIVE Constitutional BP elevated; Afebrile; Alert and in no distress. Well developed. Alert. Clean appearing.. Height/Length: 59 in (149.86 cm), Weight: 186.6 lbs (84.82 kgs), BMI: 37.7, Temperature: 98.7 ?F (37.06 ?C), Pulse: 57 bpm, Respiratory Rate: 18 breaths/min, Blood Pressure: 162/80 mmHg, Pulse Oximetry: 98 %. Integumentary (Hair, Skin) Refer to appropriate clinician wound documentation for this visit.. Wound #1 Left, Medial Leg is a chronic Full Thickness Venous Ulcer and has received an outcome of Healed - no new wound(s). Subsequent wound encounter measurements are 0cm length x 0cm width x 0cm depth, with an area of 0 sq cm and a volume of 0 cubic cm. No tunneling has been noted. No sinus tract has been noted. No undermining has been noted. There is a scant amount of serous drainage noted which has no odor. The patient reports a wound pain of level 0/10. The wound margin is rolled. Wound bed has Yes epithelialization, No eschar, Yes slough, No granulation. The periwound skin texture is normal. The periwound skin moisture is normal. The periwound skin color is normal. The temperature of the periwound skin is WNL. Periwound skin does not exhibit signs or symptoms of infection. Local Pulse is Palpable. Neurological: Cranial nerves grossly intact with symmetric function normal by informal observation.. ASSESSMENT Active Problems ICD-10 (Encounter Diagnosis) S81.802D - Unspecified open wound, left lower leg, subsequent encounter PLAN Additional Orders: Cleanser Cleanse Wound: - Normal saline and gauze. Dressings Primary dressing: - Nexcare Change Dressing: - Every three days for one week then leave it open. Follow-Up Appointments Other information: If you develop fever, chills, increased pain, drainage, redness or swelling please call our office. If after hours, respond to the ER. Should you experience any significant changes in your wound(s) or have any questions regarding your home care instructions please contact the wound center @ [phone]. If after hours, contact your primary care physician or go to the hospital emergency room. Discharge from Outpatient Services. - Wound healed. Scribing Attestation I attest, as the nurse, that I scribed these orders for the physician. I've reviewed the clinician's documentation and agree with the evaluation and plan as written. In addition the patient's last remiaining complex wound is now healed. The patient is invited to return to our clinic for treatment of any future complex wounds. Post wound care and strategies to avoid recurrences were discussed. Electronic Signature(s) Signed By: Date: Roberto Khan MD 02/15/2018 06:31:21 Entered By: Roberto Khan on 02/15/2018 06:22:25
== END ==
PROVIDERS: Family Provider Specialist; PCP Specialist; Visit Provider Internal Medicine
DX: Z48.817 Encounter for surgical aftercare following surgery on the skin and subcutaneous tissue (principal)
CPT/HCPCS: 99213

== ENCOUNTER 2018-11-05 07:50 | Day surgery (SDC) | payer MEDICARE, OTHER, SELFPAY ==
[2018-11-05 10:21] VITALS: BP 128/73; PULSE 72; RESP 16; TEMP 37.9; O2SAT 98
[2018-11-05 10:23] VITALS: BMI 32.3
[2018-11-05] MEDS: PROPARACAINE 0.5% OPHTH SOL 2 DROPS EYE-OP (10:37)
[2018-11-05] MEDS: CATARACT EYE COMPOUND (10 DROPS/SYRINGE) 3 DROPS EYE-OP (10:41)
--- NOTE | 2018-11-05 10:48 | PM.PREOP ---
Pre-operative Note Interval Note History & Physical reviewed/Exam performed by Physician: No Changes to H&P: No
--- NOTE | 2018-11-05 10:48 | PM.OP.1 ---
Operative Date/Time/Diagnoses Pre-op diagnosis: Nuclear Cataract Left eye Post-op diagnosis: same Procedure & Clinicians Surgeon: Sivakumar Kinsey Anesthesia Type: MAC +/- and Sedation Operative Notes Procedure in detail: Patient brought to the operating suite. Tetracaine drops placed in the left eye. Patient was prepped and draped in sterile manner. Wire lid speculum was placed in the eye. Betadine drops were placed on the eye. This was irrigated. Lidocaine jelly was placed on the eye. A paracentesis port was created with a side-port blade. 0.1 mL 1% preservative free lidocaine was injected into the anterior chamber. The anterior chamber was deepened with viscoelastic. 2.6 mm keratome was used to create a temporal clear corneal incision. Cystotome and Utrata forceps were used to create continuous tear capsulorrhexis. Balanced salt solution was used to hydro dissect the nucleus. The phacoemulsification handpiece was inserted and the nucleus was removed using the stop and chop technique. The irrigation aspiration handpiece was inserted and the remaining cortex was removed. Anterior chamber was deepened with viscoelastic. An Justin [id number] intraocular lens with a power of 23.0 was injected into the capsular bag. Irrigation aspiration handpiece was inserted and the remaining viscoelastic was removed. Incision was hydrated with balanced salt solution and found to be leak free with pressure with Weck-Jayla sponges. 0.1 mL Vigamox injected anterior chamber. 0.3 mL Kenalog 10 mg was injected subconjunctivally. Lid speculum was removed. The patient left the operating room in excellent condition. Complications: none Condition: stable Disposition: same day surgery
[2018-11-05] MEDS: LIDOCAINE JELLY 2% 5 ML 1 APPLIC TOP (11:13)
[2018-11-05] MEDS: CHONDROIDTIN/SOD HYALURONATE 1.05 ML SYRINGE INTRAOCULA (11:13)
[2018-11-05] MEDS: MOXIFLOXACIN OPHTH DROPS 3 ML BOTTLE 2 DROPS INJ (11:13)
[2018-11-05] MEDS: PHENYLEPHRINE/LIDOCAINE VIAL (OR) 0.2 ML EYE-OP (11:14)
[2018-11-05] MEDS: TRIAMCINOLONE 50 MG/5 ML VIAL INJ (11:14)
[2018-11-05] MEDS: TETRACAINE 0.5% OPHTH DROPS 4 ML 2 DROPS EYE-OP (11:14)
[2018-11-05] MEDS: BALANCED SALT IRRIG SOLN NO.2 500 ML, EPINEPHrine 1 MG IRR (11:15)
[2018-11-05 11:26] VITALS: BP 110/66; PULSE 73; RESP 15; TEMP 36.3; O2SAT 95
[2018-11-05 11:28] VITALS: BP 123/75; PULSE 71; RESP 16; TEMP 37.4; O2SAT 96
== END 2018-11-05 11:53 | disposition home or self-care (01) ==
LOC: OR 07:52
PROVIDERS: Family Provider Specialist; PCP Specialist; Visit Provider Ophthalmology
PROC: (CPT 66984; principal; 2018-11-05 11:15)
DX: H25.12 Age-related nuclear cataract, left eye (principal); I10 Essential (primary) hypertension
CPT/HCPCS: 66984; J0171; J2250; J3010; J3301

== ENCOUNTER → 2025-03-04 | Outpatient (CLI) | payer MEDICARE, OTHER, SELFPAY ==
--- NOTE | 2025-03-04 11:36 | DI.RAD.S_ITS ---
PROCEDURE: XR HIP W PEL IF DONE RT 2V INDICATIONS: RT FEMUR FRACTURE TECHNIQUE: Three views of the right hip were acquired. COMPARISON: None. FINDINGS: Bones: Comminuted intertrochanteric fracture of the right hip is transfixed by long cephalomedullary ryder. The fracture is in near anatomic alignment with the exception of a lesser trochanteric fragment which is displaced 2 cm medially . SI and hip joints: Moderate bilateral hip and mild bilateral SI degeneration noted. Moderate L5-S1 degenerative disc and facet disease Soft tissues: No soft tissue swelling, calcification or mass. IMPRESSION: ORIF intertrochanteric fracture right hip in near anatomic alignment. Lesser fragment displacement as described Dictated by: Carrington Kuo M.D. on 03/05/2025 at 11:08 Approved by: Carrington Kuo M.D. on 03/05/2025 at 11:09
== END ==
PROVIDERS: Family Provider Specialist; PCP Student in an Organized Health Care Education/Training Program; Referring Provider Registered Nurse; Visit Provider Registered Nurse
DX: S72.141D Displaced intertrochanteric fracture of right femur, subsequent encounter for closed fracture with routine healing (principal); M16.0 Bilateral primary osteoarthritis of hip; M47.818 Spondylosis without myelopathy or radiculopathy, sacral and sacrococcygeal region; M51.379 Other intervertebral disc degeneration, lumbosacral region without mention of lumbar back pain or lower extremity pain; M47.817 Spondylosis without myelopathy or radiculopathy, lumbosacral region; X58.XXXD Exposure to other specified factors, subsequent encounter
CPT/HCPCS: 73502